=== PATIENT | male | born 1960 | race Caucasian/White ===

== ENCOUNTER → 2016-12-30 | Outpatient (CLI) | payer OTHER ==
--- NOTE | 2016-12-30 14:18 | XR ---
EXAMINATION TYPE: XR knee complete LT DATE OF EXAM: 12/30/2016 CLINICAL HISTORY: Knee sprain injury with pain. TECHNIQUE: Three views of the left knee are obtained. COMPARISON: None. FINDINGS: There is mild to moderate joint space loss and mild spurring patellofemoral compartment. T here is mild spurring lateral and medial tibiofemoral compartments. There is mild joint space loss me dial tibiofemoral compartment. There is some ossific fragmentation from tibial condyles could reflect intra-articular loose bodies measuring up to 7 mm. No acute fracture or dislocation is evident. The overlying soft tissue appears unremarkable. Fabella is incidentally noted. IMPRESSION: There is no acute fracture or dislocation in the left knee. Other findings as noted lamin ruano.
== END | disposition home or self-care (01) ==
LOC: RADXRMAIN 14:00
PROVIDERS: ATTEND Emergency Medicine
DX: S83.92XA Sprain of unspecified site of left knee, initial encounter (principal)

== ENCOUNTER → 2017-01-15 | Outpatient (CLI) | payer OTHER ==
--- NOTE | 2017-01-15 13:14 | MR ---
EXAMINATION TYPE: MR knee LT wo con DATE OF EXAM: 01/15/2017 COMPARISON: NONE HISTORY: Lt Knee Sprain TECHNIQUE: Multiplanar, multisequence imaging of the left knee is performed without IV contrast. FINDINGS: MEDIAL MENISCUS: There is increased signal within the posterior horn medial meniscus. This may commun icate with the mid anterior portion of the posterior horn. Internal derangement is favored. Degenerat ramakrishna changes less likely at this level. LATERAL MENISCUS: There is minimal linear signal within the posterior horn lateral meniscus. Communic ation with an articular surface is not identified. Internal derangement should be considered. Degener ative change could be considered. CRUCIATE LIGAMENTS: The anterior and posterior cruciate ligaments are intact and unremarkable. COLLATERAL LIGAMENTS: The medial collateral ligament and lateral collateral ligament complex are inta ct and unremarkable. EXTENSOR MECHANISM: Visualized quadriceps and patellar tendons are intact. EFFUSION: There is a moderate size joint effusion present into the suprapatellar space POPLITEAL CYST: No popliteal/alcaraz cyst. TRICOMPARTMENT SPACES: Preserved CARTILAGE: Some mild narrowing of the tibial plateau articular surface may be present. Remaining cart ilage surfaces appear intact BONE MARROW SIGNAL: No focal abnormal marrow signal is appreciated. OTHER: Some superficial soft tissue swelling is present in the infrapatellar subcutaneous tissue. IMPRESSION: 1. Suspected internal derangement posterior horn medial meniscus. Communication with the anterior sup erior portion medial meniscus surfaces is not excluded. 2. Internal derangement versus degenerative change posterior horn medial meniscus. 3. Moderate joint effusion
== END | disposition home or self-care (01) ==
LOC: RADMRIMAIN 11:27
PROVIDERS: ATTEND Emergency Medicine
DX: M25.462 Effusion, left knee (principal)

== ENCOUNTER 2017-12-20 09:27 | Day surgery (SDC) | payer OTHER ==
[2017-12-16 15:57] VITALS: BMI 38.2
[~2017-12-20 09:27] MED LIST: LACTATED RINGERS 1,000 ML IV SCH
[2017-12-20] MEDS ORDERED: LIDOCAINE 1% 20 ML VIAL (10MG/ML) FOR IV START INTRADERMA ONE (10:12)
[2017-12-20 10:15] VITALS: RESP 16; TEMP 98.7
[2017-12-20 10:15] LABS: Glucose,Whole Blood 88 mg/dL (75-99)
[2017-12-20] MEDS ORDERED: PROPOFOL 10 MG/ML 20 ML VIAL IV ONE (10:46)
--- NOTE | 2017-12-20 10:46 | P.GSHP ---
History of Present Illness H&P Date: 12/20/17 Chief Complaint: History of colon polyps This a 57-year-old male referred from Dr. Ninoska tamez. Patient is today for colonoscopy. He has a history of colon polyps. Past Medical History Past Medical History: Hyperlipidemia, Hypertension Additional Past Medical History / Comment(s): steroid injection 12-02-17, hx colon polyps History of Any Multi-Drug Resistant Organisms: None Reported Past Surgical History: Orthopedic Surgery Additional Past Surgical History / Comment(s): scope rt knee,varicose veins removed rt leg,liposuction Past Anesthesia/Blood Transfusion Reactions: No Reported Reaction Smoking Status: Former smoker - Past Family History Mother Family Medical History: No Reported History Father Family Medical History: Cancer, Diabetes Mellitus Additional Family Medical History / Comment(s): colon,emphysema Medications and Allergies Home Medications Medication Instructions Recorded Confirmed Type Celecoxib [CeleBREX] 200 mg PO DAILY 12/16/17 12/20/17 History Cholecalciferol [Vitamin D3] 5,000 unit PO DAILY 12/16/17 12/20/17 History Cyclobenzaprine [Flexeril] 10 mg PO DAILY PRN 12/16/17 12/20/17 History Gabapentin 600 mg PO BID PRN 12/16/17 12/20/17 History Multivitamins, Thera [Multivitamin 1 tab PO DAILY 12/16/17 12/20/17 History (formulary)] Ramipril 10 mg PO QAM 12/16/17 12/20/17 History Simvastatin 40 mg PO DAILY 12/16/17 12/20/17 History Testosterone Replacement 30 mg PO BID 12/16/17 12/20/17 History Allergies Allergy/AdvReac Type Severity Reaction Status Date / Time No Known Allergies Allergy Verified 12/20/17 10:06 Surgical - Exam Vital Signs Temp Pulse Resp BP Pulse Ox 98.7 F 75 16 128/78 100 12/20/17 10:14 12/20/17 10:14 12/20/17 10:14 12/20/17 10:14 12/20/17 10:14 - General well developed, no distress - Eyes PERRL - ENT normal pinna - Neck no masses - Respiratory normal expansion - Cardiovascular Rhythm: regular - Abdomen Abdomen: soft, non tender Assessment and Plan Assessment: History of colon polyps. We'll perform colonoscopy.
--- NOTE | 2017-12-20 11:02 | P.OP ---
Date of Procedure: 12/20/17 Preoperative Diagnosis: History of colon polyps Postoperative Diagnosis: Diverticulosis Procedure(s) Performed: Colonoscopy Anesthesia: MAC Surgeon: Raul Chen Pathology: none sent Condition: stable Disposition: PACU Description of Procedure: The patient's placed on the endoscopy table in the lateral position. He received IV sedation. Digital rectal exam was performed which revealed no abnormalities. The flexible colonoscope was then placed patient anus and passed throughout the entire colon. The ileocecal valve was visualized. The cecum, ascending and transverse colon appeared normal. In the descending and sigmoid colon there was a few scattered diverticula. The scope was then brought back the rectum and this appeared normal. There were no polyps seen throughout the entire colon.
[2017-12-20 11:28] VITALS: BP 124/76; PULSE 61
== END 2017-12-20 11:30 | disposition home or self-care (01) ==
LOC: ORWHC2ENDO 09:27
PROVIDERS: ATTEND Surgery
DX: Z12.11 Encounter for screening for malignant neoplasm of colon (principal); K57.30 Diverticulosis of large intestine without perforation or abscess without bleeding; Z86.010 Personal history of colon polyps; Z80.0 Family history of malignant neoplasm of digestive organs; I10 Essential (primary) hypertension; E78.5 Hyperlipidemia, unspecified; Z87.891 Personal history of nicotine dependence; Z79.890 Hormone replacement therapy; Z79.899 Other long term (current) drug therapy
CPT/HCPCS: J2704; G0105; 45378

== ENCOUNTER → 2019-01-06 | Outpatient (CLI) | payer OTHER ==
[2019-01-06 16:36] LABS: Basophils # (A) 0.1 k/uL (0-0.2); Basophils % (A) 2 %; Eosinophils # (A) 0.2 k/uL (0-0.7); Eosinophils % (A) 3 %; HCT 50.6 % (39.0-53.0); HGB 17.4 gm/dL (13.0-17.5); Lymphocytes # (A) 2.6 k/uL (1.0-4.8); Lymphocytes % (A) 30 %; MCH 32.7 pg (25.0-35.0); MCHC 34.4 g/dL (31.0-37.0); MCV 94.9 fL (80.0-100.0); Mean Platelet Volume 6.8; Monocytes # (A) 0.6 k/uL (0-1.0); Monocytes % (A) 7 %; Neutrophils # (A) 4.8 k/uL (1.3-7.7); Neutrophils % (A) 56 %; Platelet Count 190 k/uL (150-450); RBC 5.33 m/uL (4.30-5.90); RDW 12.8 % (11.5-15.5); WBC 8.5 k/uL (3.8-10.6)
[2019-01-06 16:37] LABS: Appearance,Urine Clear (Clear); Bilirubin,Urine Negative (Negative); Blood,Urine Negative (Negative); Color,Urine Yellow; Glucose,Urine (UA) Negative (Negative); Ketones,Urine Negative (Negative); Leukocyte Esterase,Urine Negative (Negative); Nitrite,Urine Negative (Negative); Protein,Urine Negative (Negative); Specific Gravity,Urine 1.022 (1.001-1.035); Urobilinogen,Urine <2.0 mg/dL (<2.0)
[2019-01-06 16:43] LABS: INR 0.9 (<1.2); Partial Thromboplastin Time 25.6 sec (22.0-30.0)
[2019-01-06 16:46] LABS: African American GFR (CKD) >90 (>60 ml/min/1.73 sqM); Anion Gap 8 mmol/L; Blood Urea Nitrogen 18 mg/dL (9-20); Calcium 9.8 mg/dL (8.4-10.2); Carbon Dioxide 28 mmol/L (22-30); Chloride 105 mmol/L (98-107); Glucose 97 mg/dL (74-99); Potassium 5.2 mmol/L (3.5-5.1); Sodium 141 mmol/L (137-145)
== END | disposition home or self-care (01) ==
LOC: LABPAT 15:55
PROVIDERS: ATTEND Orthopaedic Surgery Orthopaedic Surgery of the Spine
DX: Z01.812 Encounter for preprocedural laboratory examination (principal)
CPT/HCPCS: 36415; 80048; 81003; 85025; 85610; 85730

== ENCOUNTER → 2019-01-25 | Outpatient (CLI) | payer OTHER | END | disposition home or self-care (01) | LOC: LABPAT 16:57 | PROVIDERS: ATTEND Orthopaedic Surgery Orthopaedic Surgery of the Spine | DX: Z01.812 Encounter for preprocedural laboratory examination (principal) | CPT/HCPCS: 86850; 86900; 86901; 87070 ==

== ENCOUNTER 2019-02-01 09:55 | Inpatient (IN) | payer OTHER ==
[~2019-02-01 09:55] MED LIST changes: +BACITRACIN 50,000 UNIT, POLYMYXIN B 500,000 UNIT in SODIUM CHLORIDE 0.9% IRRIGATIO 1,00... IRRIGATION ONE; +DEXAMETHASONE SOD PHOSPHATE 10 MG/ML 1 ML VIAL IV ONE; -LACTATED RINGERS 1,000 ML IV SCH; +LIDOCAINE 1% 20 ML VIAL (10MG/ML) FOR IV START INTRADERMA PRN; +MIDAZOLAM 2 MG/2 ML VIAL IV PRN; +ceFAZolin 3 GM in SODIUM CHLORIDE 0.9% 100 ML IVPB ONE
[2019-02-01] MEDS: LACTATED RINGERS 1,000 ML IV SCH ×2 (12:35→18:56)
[2019-02-01] MEDS ORDERED: ONDANSETRON 4 MG/2 ML VIAL IVP ONE (12:51)
[2019-02-01] MEDS ORDERED: GELATIN SPONGE,ABSORB (LARGE) 1 EACH SPONGE TOPICAL ONE (14:50)
[2019-02-01] MEDS ORDERED: BUPIVACAINE (PF) 0.5% 30 ML VIAL SQ ONE (14:50)
[2019-02-01] MEDS ORDERED: THROMBIN (BOVINE) 5,000 UNIT VIAL TOPICAL ONE (14:50)
[2019-02-01] MEDS ORDERED: LACTATED RINGERS 1,000 ML IV ONE (17:24)
[2019-02-01] MEDS ORDERED: BENZOCAINE/MENTHOL LOZENG 1 EACH LOZENGE MUCOUS MEM PRN (17:27)
[2019-02-01] MEDS ORDERED: ONDANSETRON 4 MG/2 ML VIAL IVP PRN (17:27)
[2019-02-01] MEDS ORDERED: HYDROmorphone 2 MG/ML 1 ML SYRINGE IVP PRN (17:27)
[2019-02-01] MEDS ORDERED: HYDROmorphone 1 MG/ML 1 ML SYRINGE IVP PRN (17:27)
[2019-02-01] MEDS ORDERED: HYDROcodone/APAP 5-325MG 1 EACH TAB PO PRN (17:27)
--- NOTE | 2019-02-01 17:41 | P.OP ---
Date of Procedure: 02/01/19 Preoperative Diagnosis: Severe spinal stenosis L4 5, spondylolisthesis L4 5, neurogenic claudication, lower extremity radiculopathy, low back pain Postoperative Diagnosis: Same Anesthesia: GETA Pathology: none sent Condition: stable Disposition: PACU Description of Procedure: DESCRIPTION OF PROCEDURE(S): BRIEF OPERATIVE NOTE Preoperative Diagnosis: Severe spinal stenosis L4 5, spondylolisthesis L4 5, neurogenic claudication, lower extremity radiculopathy, low back pain, obesity Postoperative Diagnosis:Severe spinal stenosis L4 5, spondylolisthesis L4 5, neurogenic claudication, lower extremity radiculopathy, low back pain, obesity Procedure: Laminectomy and decompression L4 5 Minimally invasive Posterior lateral decompression and facet fusion L4 5 Minimally invasive Transforaminal lumbar interbody fusion for a 360 fusion L4 5 Discectomy for decompression L4 5 Placement of interbody graft L4 5 Local autogenous bone grafting Harvesting of bone marrow aspirate via the pedicle and vertebral body of L4 Use of Cell Saver Use of bone graft extenders Surgeon: Dr. Patel Drum Tester: Randall Chaparro is present throughout the entire the case persistence during positioning, dissection, exposure, visualization, and all crucial elements of the case as well as closure. Anesthesia: General anesthesia per Dr. Barnett Estimated blood loss: Approximately 150 mL Complications: None apparent Components implanted: K2M minimally evasive [place] pedicle screw system with 4 screws measuring 6.5 x 50 with 2 rods one Crowley interbody cage measuring 10 mm and 10 mL of periosteal stem cell matrix and 30 mL of DBX bone fibers Disposition: To recovery room in good stable condition. OPERATIVE INDICATIONS The patient has had long-standing issues in their lower back and lower extremities. He has been having worsening of his symptoms at his back and his lower extremities despite aggressive conservative care. He was found have severe central and bilateral foraminal stenosis at L4 5 which cause a well with his low back pain and lower extremity symptoms along with spondylolisthesis at L4 5. The patient has been through conservative treatment. We discussed various treatment options including surgery, and the patient wishes to proceed with surgery We discussed the risk, patient's alternatives and benefits of surgery including but not limited to, risk of bleeding risk of infection, risk of need for further surgery, risk of decreased, loss of motion, muscle function, malunion nonunion, hardware failure, nerve damage, paralysis, heart attack, blindness and . OPERATIVE SUMMARY After discussing all the risks, patient alternatives and benefits at length, the patient elected to proceed with surgical intervention, signed informed consent, and presented for their procedure. The patient was seen and examined in the preoperative holding area and the surgical site was marked. The patient was given antibiotics and brought to the operating room. The patient was sedated and intubated by anesthesia in standard fashion. The patient was positioned on to the operating room table in a prone position on the appropriate frame which was well-padded and well molded. We were careful to pad any bony prominences and pressure points. We were careful to maintain the patient's cervical spine and good neutral alignment and position throughout. The patient was prepped and draped in a normal standard fashion. An appropriate timeout and keystone protocol performed. We were able to proceed with the surgery. The local wound area was infiltrated with local anesthetic. I was able utilize C-arm guidance to establish appropriate position over the pedicles bilaterally at the appropriate levels at L4 5. With the appropriate levels confirmed was able to make small stab incisions over the appropriate pedicle sites bilaterally. Utilizing C-arm in his house able to establish a Jamshidi needle over the lateral aspect of the pedicle and advanced the trocar into the pedicle being careful not to breech superiorly inferiorly medially or laterally. Position was confirmed regularly with AP and lateral images on C- arm. I was able to establish the trocar into the pedicle appropriately into the posterior aspect of the vertebral body bilaterally at the appropriate levels at L4 and L5. This was done at each of the pedicle positions and each of the vertebrae. At L4 on the right I withdrew approximately 20 mL of bone marrow aspirate to use for the bone graft supplement. I was able place the guidewire into the trocar and into the vertebral body appropriately under C-arm guidance. Dissection was taken down over the wire to the appropriate starting position for the screw placed. The appropriate length screw was chosen, threaded over the guidewire and screwed appropriately into the pedicle and vertebral body under C- arm guidance in excellent alignment and position with good bony purchase. This is done at each of the screw sites at the appropriate levels at L4 and L5. With the screws intact I extended the incision to connect the screw hole sites on the most symptomatic side on the left at L4 5. I dissected down to establish access over the pars and lamina to the base of the spinous process. I was able to expose the facet joint. The capsule the facet was taken down and showed some facet arthrosis at the joint. I was able to use a combination of curettes and Kerrison rongeurs and a high-speed drill to take down the facet joint and do a facetectomy. Partial laminectomy was also performed. The patient had severe central and bilateral foraminal stenosis. I was able get excellent foraminal decompression and central decompression with undermining across midline to perform a laminectomy centrally and contralaterally. As able get good central decompression. The ligamentum flavum was taken down to further decompress centrally and at bilateral neural foramen. I was able to expose the disc space and visualize the traversing nerve root. Note was made of some disc protrusion at the level causing further compression of the nerve root. I was able to establish a annulotomy at the appropriate level protecting soft tissue and neural structures. Note was made of some disc desiccation at the disc. I performed a complete discectomy with accommodation of curettes and rasps and scrapers. I was able get good endplate preparation at the disc space. I sized for the appropriate size interbody spacer protecting the soft tissue and neural structures. The wound was copiously irrigated and suctioned dry. There is no evidence of any dural tear or leak. I was able to pack the disc space with local autogenous bone graft as well as a small amount of bone graft which was also placed into the interbody cage itself. Protecting the soft tissue structures and neural structures I was able place the interbody cage into the interbody space at L4 5 in good alignment and good position with good fit and fill at the interbody space. His issues was conf irmed with C-arm guidance. Good hemostasis maintained. There is no evidence of any dural tear or leak. The wound was irrigated and suctioned dry. With the hardware intact, intraoperative C-arm imaging was again taken which showed good alignment and position of the hardware at the appropriate levels at L4 5. We were then able to measure, contour and place the rods and appropriate hardware bilaterally. I was able to place capcrews, tighten them down, and torque them with the torque screwdriver appropriately. With this intact I was able to place the local autogenous bone graft with additional bone graft enhancer as necessary into the posterior lateral gutters over the decorticated transverse processes. The remainder of the bone graft was placed over the facet joint on the contralateral side after taking down the facet joint capsule. With the bone graft intact, a stable construct, and good decompression at the appropriate levels, we were able to proceed with closure. Good hemostasis was maintained. There is no evidence of dural tear or leak. The fascia was closed for a watertight closure. he subcuticular tissue was closed with absorbable suture. The wound was cleaned and dried and dressed with the appropriate dressing. The drapes were broken down. The patient was gently rolled back onto their hospital bed being careful to maintain their cervical spine and good neut ral alignment and position. They were woken up by anesthesia, extubated, and brought to the recovery room in good stable condition. The patient will be admitted to the hospital for appropriate postoperative care, medical management and monitoring. We will continue to follow them closely about the postoperative course.
[2019-02-01] MEDS: fentaNYL (PF) 50 MCG/ML 2 ML AMP IV PRN ×4 (17:45→18:38)
[2019-02-01] MEDS: CALCIUM CARBONATE 500 MG CHEWABLE PO SCH (21:34)
[2019-02-01] MEDS: SODIUM CHLORIDE 0.9% 1,000 ML IV SCH (21:38)
[2019-02-01] MEDS: HYDROmorphone 0.5 MG/0.5 ML SYRINGE IVP PRN (22:08)
[2019-02-01] MEDS: ceFAZolin 3 GM in SODIUM CHLORIDE 0.9% 100 ML IVPB SCH (23:21)
[2019-02-02] MEDS: HYDROmorphone 0.5 MG/0.5 ML SYRINGE IVP PRN ×2 (02:30→23:18)
[2019-02-02] MEDS: HYDROcodone/APAP 5-325MG 1 EACH TAB PO PRN ×3 (04:33→20:50)
[2019-02-02] MEDS: SODIUM CHLORIDE 0.9% 1,000 ML IV SCH ×2 (05:56→15:37)
--- NOTE | 2019-02-02 07:11 | FL ---
EXAMINATION TYPE: FL guidance operating room DATE OF EXAM: 02/01/2019 CLINICAL HISTORY: Low back pain. TECHNIQUE: Fluoroscopy. COMPARISON: None. FINDINGS: Fluoroscopic guidance was provided during pain relief procedure performed by Dr. Patel . A total of 1.22 minutes of fluoroscopic time was utilized during the procedure and 6 spot images are acquired during minimally invasive lumbar fusion. IMPRESSION: As Above.
[2019-02-02 07:31] LABS: Basophils % (A) 0 %; Eosinophils % (A) 0 %; HCT 43.2 % (39.0-53.0); HGB 14.9 gm/dL (13.0-17.5); Lymphocytes # (A) 1.4 k/uL (1.0-4.8); Lymphocytes % (A) 11 %; MCHC 34.5 g/dL (31.0-37.0); Mean Platelet Volume 5.8; Monocytes # (A) 0.9 k/uL (0-1.0); Monocytes % (A) 7 %; Neutrophils # (A) 9.9 k/uL (1.3-7.7); Neutrophils % (A) 81 %; Platelet Count 194 k/uL (150-450); RBC 4.64 m/uL (4.30-5.90); RDW 12.3 % (11.5-15.5); WBC 12.3 k/uL (3.8-10.6)
[2019-02-02] MEDS: HYDROmorphone 1 MG/ML 1 ML SYRINGE IVP PRN ×2 (07:37→11:50)
[2019-02-02] MEDS: CALCIUM CARBONATE 500 MG CHEWABLE PO SCH ×2 (07:39→20:51)
[2019-02-02] MEDS: CHOLECALCIFEROL 1,000 UNIT TAB PO SCH (07:39)
[2019-02-02] MEDS: ceFAZolin 3 GM in SODIUM CHLORIDE 0.9% 100 ML IVPB SCH (07:39)
[2019-02-02] MEDS: SENNOSIDES-DOCUSATE SODIUM 1 EACH TAB PO SCH (07:39)
[2019-02-02] MEDS: MULTIVITAMINS, THERA 1 EACH TAB PO SCH (07:40)
[2019-02-02] MEDS: ATORVASTATIN 20 MG TAB PO SCH (07:40)
[2019-02-02] MEDS: LISINOPRIL 20 MG TAB PO SCH (07:40)
[2019-02-02 07:51] LABS: African American GFR (CKD) >90 (>60 ml/min/1.73 sqM); Anion Gap 8 mmol/L; Blood Urea Nitrogen 18 mg/dL (9-20); Calcium 8.6 mg/dL (8.4-10.2); Carbon Dioxide 28 mmol/L (22-30); Chloride 101 mmol/L (98-107); Glucose 109 mg/dL (74-99); Potassium 4.5 mmol/L (3.5-5.1); Sodium 137 mmol/L (137-145)
--- NOTE | 2019-02-02 11:30 | P.PN ---
Progress Note - Text Progress Note Date: 02/02/19 Postoperative day #1 Patient is seen and examined today at bedside. The patient has some pain around the surgical site as expected. Pain is being controlled with medication. He has occasional tingling down his legs but he denies any loss of strength. Physical Exam Afebrile with stable vital signs Abdomen is soft nontender. Chest has good excursion deep and space expiration The incision site is clean dry and intact. No erythema there is no purulence. The back dressing is intact with some small bleeding on the dressing. Extremities have not had neurologic change from prior to surgery. He has sustained dorsal flexion plantarflexion and EHL flexion-extension intact. Calves and thighs were soft nontender without evidence of DVT. Assessment/Plan Postoperative day 1 status post minimally invasive decompression and fusion L4 5 for his severe spinal stenosis with spondylolisthesis and lower extremity radiculopathy Patient is progressing as expected from the surgery. He has severe pain around his surgical site but has been able to mobilize with therapy today We will continue to increase the patient's mobilization with therapy. We will continue pain control with oral or IV medications. We'll continue to follow patient closely.
[2019-02-02] MEDS: LACTATED RINGERS 1,000 ML IV SCH (15:26)
[2019-02-02] MEDS: CYCLOBENZAPRINE 10 MG TAB PO PRN (20:52)
[2019-02-03] MEDS: HYDROcodone/APAP 5-325MG 1 EACH TAB PO PRN ×5 (03:25→22:44)
[2019-02-03] MEDS: HYDROmorphone 1 MG/ML 1 ML SYRINGE IVP PRN (05:48)
[2019-02-03] MEDS: ATORVASTATIN 20 MG TAB PO SCH (07:38)
[2019-02-03] MEDS: LISINOPRIL 20 MG TAB PO SCH (07:38)
[2019-02-03] MEDS: CALCIUM CARBONATE 500 MG CHEWABLE PO SCH ×2 (07:38→21:41)
[2019-02-03] MEDS: SENNOSIDES-DOCUSATE SODIUM 1 EACH TAB PO SCH (07:38)
[2019-02-03] MEDS: MULTIVITAMINS, THERA 1 EACH TAB PO SCH (07:38)
[2019-02-03] MEDS: CHOLECALCIFEROL 1,000 UNIT TAB PO SCH (07:41)
--- NOTE | 2019-02-03 08:53 | P.PN ---
Progress Note - Text Progress Note Date: 02/03/19 Orthopedic Spine Patient is a pleasant 58-year-old male who is seen and examined at the bedside following posterior lateral decompression and fusion performed Wednesday. He does continue to have significant pain at the surgical sites and bilateral lower extremity radiculopathy but feels he has had some improvement since yesterday. His pain radiates from the lumbar spine, into the buttocks, down the posterior thigh into the calves. He is currently sitting in a bedside chair. He has been able to roll over easier bed. He has been able to extend extended the time in between IV Dilaudid doses. He continues to take oral pain medications. He is eating without difficulty. He has some difficulty with voiding while standing but is able to void easier while lying in bed. Patient states they are doing well postsurgically. Currently does not complain of nausea, vomiting, fever, or chills. He is working with therapy to aid in ambulation and is currently using a walker. Patient has had a medical history which includes hypertension and hyperlipidemia. Physical Exam Lumbar Fusion: Status post surgical day number 2 Patient is awake, alert, and oriented 3 Vital signs stable Good chest excursion with deep inspiration and expiration Dorsiflexion, plantarflexion, and extensor hallucis longus positive sustained bilaterally No signs or symptoms of DVT; no calf pain; pneumatic cuffs intact bilateral lower extremities Dressing is clean and intact with a small area of dry blood over the right incision; no erythema, purulence, or signs of infection No significant pain on palpation over the surgical sites Neurovascularly intact bilaterally lower extremities Assessment: Status post L4-5 minimally invasive posterior lateral decompression and fusion with transforaminal lumbar interbody fusion Low back pain Bilateral lower extremity radiculopathy L4-5 spondylolisthesis Neurogenic claudication History of hypertension and hyperlipidemia Plan: 1. Ambulate as tolerated; work with Physical Therapy to increase mobilization 2. Continue pain control with IV and oral medications; we will continue to wean off IV narcotic medications in anticipation for discharge home over the weekend MAPS has been reviewed today, 02/03/2019, with an Overall Overdose Risk Score of 000. An "Opiod Start Talking" Forn has been signed by the patient and myself in place in the patient's chart. A prescription has been written for [place] 5 mg/325 mg 1-2 tabs every 4 hours as needed for pain, dispensed #[id number]. Prescription has been sent electronically to his pharmacy. Patient may resume other previous prescribed home medications at the time of discharge while avoiding anti-inflammatories over the next 6 weeks postoperatively. 3. Dressing to remain intact with nonstick silver dressing and Tegaderm 4. Medical management can continue to manage patient for patient's other medical issues 5. We will continue to follow the patient closely; if the patient is able to improve, we'll plan for discharge home over the next 1-2 days 6. Patient can follow-up with Randall Cardozo PA-C or Dr. Jose Luis Patel at [facility] in 2-3 weeks following discharge
[2019-02-03] MEDS: SODIUM CHLORIDE 0.9% 1,000 ML IV SCH (12:27)
[2019-02-03] MEDS: CYCLOBENZAPRINE 10 MG TAB PO PRN (21:41)
[2019-02-04] MEDS: GABAPENTIN 300 MG CAP PO PRN ×3 (02:12→16:58)
[2019-02-04] MEDS: HYDROcodone/APAP 5-325MG 1 EACH TAB PO PRN ×5 (05:15→20:56)
[2019-02-04] MEDS: MULTIVITAMINS, THERA 1 EACH TAB PO SCH (08:46)
[2019-02-04] MEDS: CALCIUM CARBONATE 500 MG CHEWABLE PO SCH ×2 (08:46→20:56)
[2019-02-04] MEDS: ATORVASTATIN 20 MG TAB PO SCH (08:46)
[2019-02-04] MEDS: LISINOPRIL 20 MG TAB PO SCH (08:46)
[2019-02-04] MEDS: SENNOSIDES-DOCUSATE SODIUM 1 EACH TAB PO SCH (08:46)
[2019-02-04] MEDS: CHOLECALCIFEROL 1,000 UNIT TAB PO SCH (08:46)
[2019-02-04] MEDS ORDERED: NA PHOS,M-B/NA PHOS,DI-BA 133 ML ENEMA RECTAL PRN (10:23)
--- NOTE | 2019-02-04 10:28 | P.DS ---
Providers Date of admission: 02/01/19 12:12 Attending physician: Leanna Patel Primary care physician: [facility] Course: The patient presented on the day of admission as per their operative note. He had severe stenosis with spondylolisthesis L4 5 with low back pain lower extremity radiculopathy. He had failed conservative treatment after extensive conservative intervention and underwent decompression and fusion at L4 5 with minimally invasive pedicle screws as per his operative note. Postoperatively he has been making progress with his pain control and his mobilization. He is tolerating his diet. He has been ambulatory on his own with a walker in his room. He has been able to void freely but has not yet had a bowel movement. He is not having any nausea or vomiting. He denies any fevers. Physical Exam The incision site is clean dry and intact. There is no erythema no drainage. There is no purulence no evidence of infection. There is no cigarette swelling Abdomen soft and nontender. There is no rebound or rigidity. No significant distention he is obese Chest has good excursion with deep inspiration and expiration. The patient has active and passive range of motion intact at the upper and lower extremities. There is no acute change in neurologic status. He has sustained dorsal should plantarflexion and EHL intact with 5 out of 5 strength. Hospital Course Postoperative day #3 status post middle invasive decompression and fusion L4 5 for a spondylolisthesis with severe central and bilateral foraminal stenosis and lower extremity radiculopathy The patient has been making good progress postoperatively in terms of his mobility and pain control. They have completed the prophylactic antibiotics without any signs or symptoms of infection. The patient has been able to advance their diet, and is tolerating diet adequately. The pain was initially controlled with IV medications and is now controlled appropriately with oral medications. The patient has been able to increase their mobilization. The patient has not yet had a bowel movement but he is voiding freely on his own. I like to see if he is able to have a bowel movement with a suppository this morning. He feels that if his bowel start to move that he would be comfortable with going home and I think is appropriate. The patient has progressed appropriately. I think they are in good stable condition for discharge today if he is able have a bowel movement and he feels comfortable with his pain.. They will be sent home with appropriate prescriptions. I answered their questions to the best of my ability in a language that they can understand and they are agreeable with the plan. They will follow up as directed in approximately 2 weeks or sooner if he is having a problem. Patient Condition at Discharge: Good Plan - Discharge Summary Discharge Rx Participant: Yes New Discharge Prescriptions: New Hydrocodone/Acetaminophen [[place] 5-325] 1 - 2 each PO Q4HR PRN #84 tab PRN Reason: Pain No Action Ramipril 10 mg PO QAM Multivitamins, Thera [Multivitamin (formulary)] 1 tab PO DAILY Cholecalciferol [Vitamin D3] 5,000 unit PO DAILY Simvastatin 40 mg PO DAILY Gabapentin 600 mg PO TID PRN PRN Reason: Pain Cyclobenzaprine [Flexeril] 10 mg PO 2000 PRN PRN Reason: Pain Celecoxib [CeleBREX] 200 mg PO DAILY Fortesta 30 mg TOPICAL BID Calcium Carbonate [Calcium] 300 mg PO BID Discharge Medication List Celecoxib [CeleBREX] 200 mg PO DAILY 12/16/17 [History] Cholecalciferol [Vitamin D3] 5,000 unit PO DAILY 12/16/17 [History] Cyclobenzaprine [Flexeril] 10 mg PO 2000 PRN 12/16/17 [History] Gabapentin 600 mg PO TID PRN 12/16/17 [History] Multivitamins, Thera [Multivitamin (formulary)] 1 tab PO DAILY 12/16/17 [History] Ramipril 10 mg PO QAM 12/16/17 [History] Simvastatin 40 mg PO DAILY 12/16/17 [History] Calcium Carbonate [Calcium] 300 mg PO BID 01/26/19 [History] Fortesta 30 mg TOPICAL BID 01/26/19 [History] Hydrocodone/Acetaminophen [[place] 5-325] 1 - 2 each PO Q4HR PRN #84 tab 02/03/19 [Rx] Follow up Appointment(s)/Referral(s): Randall Cardozo PAC [PHYSICIAN TOOLROOM ATTENDANT] - 2 Weeks (Patient may follow-up with Ranadll Cardozo PA-C or Dr. Jose Luis Patel at [facility] in 2-3 weeks following discharge. ) Activity/Diet/Wound Care/Special Instructions: 1. Patient may shower with Tegaderm dressing intact. 2. Patient may remove Tegaderm dressing on Wednesday and shower without a dressing at that time. 3. Patient should keep Steri-Strips intact and allow them to fall off naturally. 4. Patient should refrain from driving until at least after their first follow- up appointment in the office. 5. Patient should avoid excessive bending, twisting, and lifting; no lifting greater than 10 pounds 6. Take medications as prescribed 7. Do not soak in tub Discharge Disposition: HOME SELF-CARE
[2019-02-04] MEDS: BISACODYL 10 MG SUPP RECTAL SCH (12:44)
[2019-02-04] MEDS: MAGNESIUM HYDROXIDE 2,400 MG/10 ML CUP PO PRN (16:58)
[2019-02-05] MEDS: HYDROcodone/APAP 5-325MG 1 EACH TAB PO PRN ×4 (01:23→15:14)
[2019-02-05] MEDS: CALCIUM CARBONATE 500 MG CHEWABLE PO SCH ×2 (08:50→19:25)
[2019-02-05] MEDS: SENNOSIDES-DOCUSATE SODIUM 1 EACH TAB PO SCH (08:51)
[2019-02-05] MEDS: MULTIVITAMINS, THERA 1 EACH TAB PO SCH (08:51)
[2019-02-05] MEDS: CHOLECALCIFEROL 1,000 UNIT TAB PO SCH (08:51)
[2019-02-05] MEDS: ATORVASTATIN 20 MG TAB PO SCH (08:51)
[2019-02-05] MEDS: LISINOPRIL 20 MG TAB PO SCH (08:51)
[2019-02-05] MEDS: BISACODYL 10 MG SUPP RECTAL SCH (08:51)
[2019-02-05] MEDS: GABAPENTIN 300 MG CAP PO PRN (11:03)
[2019-02-05 11:26] LABS: Appearance,Urine Clear (Clear); Bilirubin,Urine Negative (Negative); Blood,Urine Trace (Negative); Color,Urine Yellow; Glucose,Urine (UA) Negative (Negative); Ketones,Urine Negative (Negative); Leukocyte Esterase,Urine Negative (Negative); Mucus,Urine Rare /hpf; Nitrite,Urine Negative (Negative); PH, Urine 7.5 (5.0-8.0); Protein,Urine Trace (Negative); RBC,Urine 9 /hpf (0-5); Specific Gravity,Urine 1.019 (1.001-1.035); Urobilinogen,Urine <2.0 mg/dL (<2.0)
--- NOTE | 2019-02-05 13:36 | P.DS ---
Providers Date of admission: 02/01/19 12:12 Attending physician: Leanna Patel Primary care physician: [facility] Course: Postoperative day #4 Patient is seen and examined today at bedside. The patient has some pain around the surgical site as expected. Pain is being controlled with medication. He has been able to get up out of bed on his own with a walker to the bathroom. He is able walk in the bathroom without the walker. He was having significant difficulty with voiding and this morning had bladder scan which showed residual of 800 mL of urine. He had straight catheterization which put out about 850 mL. He is oriented small voiding since then. He had very small watery stool after his enema yesterday and has not had a good bowel movement yet. Physical Exam Afebrile with stable vital signs Abdomen is soft nontender. He has no rebound or rigidity. Chest has good excursion deep and space expiration The incision site is clean dry and intact. No erythema there is no purulence. Extremities have not had neurologic change from prior to surgery. He has sustained dorsal to plantar flexion and EHL. There is no saddle paresthesias. He has sustained dorsal to plantar flexion and EHL intact. Calves and thighs were soft nontender without evidence of DVT. Assessment/Plan Postoperative day #4 status post minimally invasive decompression fusion L4 5 for severe spinal stenosis with spondylolisthesis Postoperative urinary retention Patient is progressing somewhat slowly from the surgery. He has not yet had a bowel movement and he is having some difficulty voiding. I think it would be helpful start him on Flomax. If he is not having good urination later today on his own and then we'll check another bladder scan. If he is having significant residual vent he may have some benefit with lateral rest with placement of a Parikh catheter overnight. I discussed this with him and he understands. If he is having some benefit after his straight catheterization and is voiding freely and was able to have a good bowel movement then he would like to go home and I think that is reasonable as well. We will continue to increase the patient's mobilization with therapy. We will continue pain control with orals. If he makes progress with his urination and bowel movements and to be okay for him to discharge home today with appropriate follow-up. Patient Condition at Discharge: Good Plan - Discharge Summary Discharge Rx Participant: Yes New Discharge Prescriptions: New Hydrocodone/Acetaminophen [[place] 5-325] 1 - 2 each PO Q4HR PRN #84 tab PRN Reason: Pain No Action Ramipril 10 mg PO QAM Multivitamins, Thera [Multivitamin (formulary)] 1 tab PO DAILY Cholecalciferol [Vitamin D3] 5,000 unit PO DAILY Simvastatin 40 mg PO DAILY Gabapentin 600 mg PO TID PRN PRN Reason: Pain Cyclobenzaprine [Flexeril] 10 mg PO 2000 PRN PRN Reason: Pain Celecoxib [CeleBREX] 200 mg PO DAILY Fortesta 30 mg TOPICAL BID Calcium Carbonate [Calcium] 300 mg PO BID Discharge Medication List Celecoxib [CeleBREX] 200 mg PO DAILY 12/16/17 [History] Cholecalciferol [Vitamin D3] 5,000 unit PO DAILY 12/16/17 [History] Cyclobenzaprine [Flexeril] 10 mg PO 2000 PRN 12/16/17 [History] Gabapentin 600 mg PO TID PRN 12/16/17 [History] Multivitamins, Thera [Multivitamin (formulary)] 1 tab PO DAILY 12/16/17 [History] Ramipril 10 mg PO QAM 12/16/17 [History] Simvastatin 40 mg PO DAILY 12/16/17 [History] Calcium Carbonate [Calcium] 300 mg PO BID 01/26/19 [History] Fortesta 30 mg TOPICAL BID 01/26/19 [History] Hydrocodone/Acetaminophen [[place] 5-325] 1 - 2 each PO Q4HR PRN #84 tab 02/03/19 [Rx] Follow up Appointment(s)/Referral(s): Randall Cardozo, PAC [PHYSICIAN STUDIO COORDINATOR] - 2 Weeks (Patient may follow-up with Randall Cardozo PA-C or Dr. Jose Luis Patel at [facility] in 2-3 weeks following discharge. ) Activity/Diet/Wound Care/Special Instructions: 1. Patient may shower with Tegaderm dressing intact. 2. Patient may remove Tegaderm dressing on Wednesday and shower without a dressing at that time. 3. Patient should keep Steri-Strips intact and allow them to fall off naturally. 4. Patient should refrain from driving until at least after their first follow- up appointment in the office. 5. Patient should avoid excessive bending, twisting, and lifting; no lifting greater than 10 pounds 6. Take medications as prescribed 7. Do not soak in tub Discharge Disposition: HOME SELF-CARE
[2019-02-05] MEDS: TAMSULOSIN 0.4 MG CAP.ER.24H PO SCH (15:14)
[2019-02-05] MEDS: HYDROcodone/APAP 10-325MG 1 EACH TAB PO PRN ×2 (19:24→23:32)
--- NOTE | 2019-02-05 19:54 | US ---
EXAMINATION TYPE: US venous doppler duplex LE RT DATE OF EXAM: 02/05/2019 7:41 PM COMPARISON: NONE CLINICAL HISTORY: red, swollen, tender area above right medial knee. Pt having redness and pain right medial knee, recent back surgery SIDE PERFORMED: Right TECHNIQUE: The lower extremity deep venous system is examined utilizing real time linear array sonog giselle with graded compression, doppler sonography and color-flow sonography. VESSELS IMAGED: External Iliac Vein (EIV) Common Femoral Vein Deep Femoral Vein Greater Saphenous Vein * Femoral Vein Popliteal Vein Small Saphenous Vein * Proximal Calf Veins (* superficial vessels) Right Leg: Negative for DVT, however Rouleaux flow visualized throughout veins/ +SVT within right GS V medial knee at redness, also +SVT within small saph vein IMPRESSION: There is some superficial vein thrombosis involving the long and short saphenous veins. N o evidence of deep venous thrombosis. Normal augmentation.
[2019-02-06] MEDS: HYDROcodone/APAP 10-325MG 1 EACH TAB PO PRN ×6 (02:48→23:49)
[2019-02-06] MEDS: CYCLOBENZAPRINE 10 MG TAB PO PRN ×2 (02:49→19:30)
[2019-02-06] MEDS: TAMSULOSIN 0.4 MG CAP.ER.24H PO SCH (07:16)
[2019-02-06] MEDS: LISINOPRIL 20 MG TAB PO SCH (07:16)
[2019-02-06] MEDS: CALCIUM CARBONATE 500 MG CHEWABLE PO SCH ×2 (07:16→19:30)
[2019-02-06] MEDS: ATORVASTATIN 20 MG TAB PO SCH (07:16)
[2019-02-06] MEDS: BISACODYL 10 MG SUPP RECTAL SCH (07:17)
[2019-02-06] MEDS: MULTIVITAMINS, THERA 1 EACH TAB PO SCH (07:17)
[2019-02-06] MEDS: CHOLECALCIFEROL 1,000 UNIT TAB PO SCH (07:17)
[2019-02-06] MEDS: SENNOSIDES-DOCUSATE SODIUM 1 EACH TAB PO SCH (07:17)
--- NOTE | 2019-02-06 09:02 | P.PN ---
Progress Note - Text Progress Note Date: 02/06/19 Orthopedic Spine: Patient is a pleasant 58-year-old male who is seen and examined at the bedside following posterior lateral decompression and fusion performed last Wednesday. He has had significant improvement overall in regards to his low back pain and lower extremity radiculopathy. He does have some pain radiates from the lumbar spine, into the buttocks, down the posterior thigh into the calves. He feels he was ready for discharge home from a lumbar spine standpoint but has had increased difficulty with urinary retention, constipation, and right medial distal thigh pain. He is been started on Flomax and a Parikh catheter has been reinserted. He had a suppository yesterday and felt he had a bowel movement this morning but was unable to do so. He is currently planned to receive another suppository this morning. He is also been experiencing increased pain, swelling, and erythema over the right distal medial thigh. He denies any injuries. He does have a history of previous surgical intervention at this same location for varicose veins years ago. An ultrasound Doppler of the right lower extremity but did not show evidence of DVT but did show evidence of superficial vein thrombosis involving the long and short saphenous veins. He feels his right medial distal thigh pain has been worsening over the past day or so. He has been able to ambulate to the restroom. His pain continues to be control with oral medications. He is eating without difficulty. Currently does not complain of nausea, vomiting, fever, or chills. Patient has had a medical history which includes hypertension and hyperlipidemia. Physical Exam Lumbar Fusion: Status post surgical day number 5 Patient is awake, alert, and oriented 3 Vital signs stable Abdomen is firm and distended with some mild pain with palpation Good chest excursion with deep inspiration and expiration Dorsiflexion, plantarflexion, and extensor hallucis longus positive sustained bilaterally No signs or symptoms of DVT; no calf pain; pneumatic cuffs not currently intact bilateral lower extremities Dressing is clean and intact with a small area of dry blood over the right incision; no erythema, purulence, or signs of infection No significant pain on palpation over the surgical sites Neurovascularly intact bilaterally lower extremities Parikh catheter intact Evidence of some swelling, erythema, and mild purple discoloration of the right medial distal thigh He will palpation over the right medial distal thigh Evidence of multiple healed incisions along the right medial distal thigh following previous surgical intervention Pertinent studies: Ultrasound venous Doppler duplex right lower extremity: Negative for DVT however evidence of superficial vein thrombosis involving the long and short saphenous veins Assessment: Status post L4-5 minimally invasive posterior lateral decompression and fusion with transforaminal lumbar interbody fusion Low back pain Bilateral lower extremity radiculopathy L4-5 spondylolisthesis Neurogenic claudication History of hypertension and hyperlipidemia Right medial distal thigh pain and swelling Superficial vein thrombosis involving the right long and short saphenous veins History of previous varicose vein surgery right lower extremity Urinary retention Constipation Plan: 1. Ambulate as tolerated; work with Physical Therapy to increase mobilization 2. Continue pain control with oral medications MAPS has been reviewed on 02/03/2019 with an Overall Overdose Risk Score of 000. An "Opiod Start Talking" Forn has been signed by the patient and myself in place in the patient's chart. A prescription has been written for Jeff 5 mg/325 mg 1-2 tabs every 4 hours as needed for pain, dispensed #84. Prescription has been sent electronically to his pharmacy. Patient may resume other previous prescribed home medications at the time of discharge while avoiding anti-inflammatories over the next 6 weeks postoperatively. 3. Dressing to remain intact with nonstick silver dressing and Tegaderm 4. Medical management can continue to manage patient for patient's other medical issues including urinary retention and constipation 5. We will continue to follow the patient closely; if the patient is able to improve in regards to urinary retention, constipation, and his right distal medial thigh pain and swelling, we'll plan for discharge home over the next 1-2 days 6. Patient is currently expanding some urinary retention. He is been started on Flomax and a Parikh catheter has been reinserted. We may plan to discontinue the Parikh catheter to see the patient is able to void on his own. 7. Patient is also having difficulty with constipation. He was given a suppository yesterday. He felt he had a bowel movement this morning but was unable to do so. He will receive a second suppository this morning. We will also plan to continue with Senokot and milk of magnesia to help facilitate a bowel movement. 8. He has been experiencing increased right medial distal thigh pain and swelling. The area shows some evidence of erythema and some purple discoloration. He does have a history of previous varicose vein surgery at this same location. Ultrasound Doppler was negative for DVT but did show evidence of superficial vein thrombosis involving the right long and short saphenous veins. He is having worsening pain and swelling at the site. We'll currently planned for consultation with vascular surgery. 9. Patient can follow-up with Randall Cardozo PA-C or Dr. Jose Luis Patel at [facility] in 2-3 weeks following discharge
[2019-02-06] MEDS ORDERED: NA PHOS,M-B/NA PHOS,DI-BA 133 ML ENEMA RECTAL ONE (12:37)
--- NOTE | 2019-02-06 14:45 | CDI ---
Documentation Clarification Form Date: 02/06/2019 2:36:04 PM From: Fariha AngeloMAURY ortiz, CCDS Admit Date: 02/01/2019 12:12:00 PM Patient Name: Rohan Massey Visit Number: [id number] Discharge Date: ATTENTION: The Clinical Documentation Specialists (CDI) and [facility] Coding Staff appreciate your assistance in clarifying documentation. Please respond to the clarification below the line at the bottom and electronically sign. The CDI & [facility] Coding staff will review the response and follow-up if needed. Please note: Queries are made part of the Legal Health Record. If you have any questions, please contact the author of this message via ITS. Dr. Leanna Patel: Per the 02/06 attending progress note on POD #5: "He feels he was ready for discharge home from a lumbar spine standpoint but has had increased difficulty with urinary retention, constipation, and right medial distal thigh pain. He has been started on Flomax and a Queen catheter has been reinserted." Discharge was originally scheduled for 02/04. Patients Admitting & Postoperative Diagnosis: Status post L4-5 minimally invasive posterior lateral decompression and fusion with transforaminal lumbar interbody fusion. Low back pain. Bilateral lower extremity radiculopathy. L4-5 spondylolisthesis. Neurogenic claudication. History/Risk Factors: Previous vein surgery, Hypertension & Hyperlipidemia. Clinical Indicators: Presented as above, discharge held due to urinary retention requiring queen catheter. UA 10/6: clear, trace protein, trace blood, RBC 9. Treatment: Queen catheter re-insertion on POD 5 status post spinal surgery. Patient was straight cathed prior to Queen insertion. Heparin sc, Flomax, [place], Dulcolax, Fleets enema, Senokot, IV Cefazolin, IV fl rate 75. In order to accurately reflect this patients severity of illness, please clarify if the post-operative diagnosis of urinary retention is: An expected post-procedural or post-surgical condition, please specify cause. An unexpected post-procedural or post-surgical condition related to surgical care (a complication of care), please specify cause if known. An unexpected post-procedural or post-surgical condition, related to the patients underlying medical comorbidities Other, please specify ____ Unable to determine (Last Revision: August 2018) Through the course the patient's recovery is he has had some urinary retention and necessitated reinsertion of Queen catheter. This is somewhat unexpected as we anticipated the patient would continued progress and be able to void well on his own in the couple of days postoperatively. However this may be due to underlying medical comorbidities such as undiagnosed benign prostatic hypertrophy, due to the patient's size and obesity, as well as bladder distention with his retention initially. It is difficult to determine the specific cause and we are unable to determine the absolute cause of this point. MTDD
[2019-02-06] MEDS: HEPARIN SODIUM,PORCINE 5,000 UNIT/ML 1 ML VIAL SQ SCH ×2 (15:06→23:50)
[2019-02-07] MEDS: HYDROcodone/APAP 10-325MG 1 EACH TAB PO PRN ×4 (04:19→15:26)
[2019-02-07] MEDS: HEPARIN SODIUM,PORCINE 5,000 UNIT/ML 1 ML VIAL SQ SCH ×2 (07:58→15:26)
[2019-02-07] MEDS: MULTIVITAMINS, THERA 1 EACH TAB PO SCH (07:58)
[2019-02-07] MEDS: LISINOPRIL 20 MG TAB PO SCH (07:59)
[2019-02-07] MEDS: CHOLECALCIFEROL 1,000 UNIT TAB PO SCH (07:59)
[2019-02-07] MEDS: CALCIUM CARBONATE 500 MG CHEWABLE PO SCH (07:59)
[2019-02-07] MEDS: TAMSULOSIN 0.4 MG CAP.ER.24H PO SCH (07:59)
[2019-02-07] MEDS: ATORVASTATIN 20 MG TAB PO SCH (07:59)
[2019-02-07] MEDS: SENNOSIDES-DOCUSATE SODIUM 1 EACH TAB PO SCH (07:59)
[2019-02-07] MEDS: BISACODYL 10 MG SUPP RECTAL SCH (07:59)
--- NOTE | 2019-02-07 12:53 | P.PN ---
Progress Note - Text Progress Note Date: 02/07/19 Orthopedic Spine: Patient is a pleasant 58-year-old male who is seen and examined at the bedside following posterior lateral decompression and fusion performed last Wednesday. He has had significant improvement overall in regards to his low back pain and lower extremity radiculopathy. He does have some pain radiates from the lumbar spine, into the buttocks, down the posterior thigh into the calves. He feels he was ready for discharge home from a lumbar spine standpoint but has had increased difficulty with urinary retention, constipation, and right medial distal thigh pain. He is been started on Flomax and a Parikh catheter has been reinserted. Parikh catheter has been discontinued since yesterday. He is currently trying to void on his own. He had a suppository yesterday and was able to have a small bowel movement. He has not had a large bowel movement. He denies any abdominal pain. He is also been experiencing increased pain, swelling, and erythema over the right distal medial thigh. He denies any injuries. He does have a history of previous surgical intervention at this same location for varicose veins years ago. An ultrasound Doppler of the right lower extremity but did not show evidence of DVT but did show evidence of superficial vein thrombosis involving the long and short saphenous veins. He feels his right medial distal thigh pain has been worsening over the past day or so but feels more controlled today. He has been seen and examined by vascular disease who is not currently planned for acute surgical intervention. They're planning to have him follow-up in the outpatient setting for further evaluation with follow-up ultrasound. He has been able to ambulate to the restroom. His pain continues to be control with oral medications. He is eating without difficulty. Currently does not complain of nausea, vomiting, fever, or chills. Patient has had a medical history which includes hypertension and hyperlipidemia. Physical Exam Lumbar Fusion: Status post surgical day number 6 Patient is awake, alert, and oriented 3 Vital signs stable Abdomen is soft nontender Good chest excursion with deep inspiration and expiration Dorsiflexion, plantarflexion, and extensor hallucis longus positive sustained bilaterally No signs or symptoms of DVT; no calf pain; pneumatic cuffs not currently intact bilateral lower extremities Dressing is removed during physical examination; incision sites are clean and dry with no active drainage or obvious sign of infection No significant pain on palpation over the surgical sites Neurovascularly intact bilaterally lower extremities Parikh catheter intact Evidence of some swelling, erythema, and mild purple discoloration of the right medial distal thigh He will palpation over the right medial distal thigh Evidence of multiple healed incisions along the right medial distal thigh following previous surgical intervention Pertinent studies: Ultrasound venous Doppler duplex right lower extremity: Negative for DVT however evidence of superficial vein thrombosis involving the long and short saphenous veins Assessment: Status post L4-5 minimally invasive posterior lateral decompression and fusion with transforaminal lumbar interbody fusion Low back pain Bilateral lower extremity radiculopathy L4-5 spondylolisthesis Neurogenic claudication History of hypertension and hyperlipidemia Right medial distal thigh pain and swelling Superficial vein thrombosis involving the right long and short saphenous veins History of previous varicose vein surgery right lower extremity Urinary retention Constipation Plan: 1. Ambulate as tolerated; work with Physical Therapy to increase mobilization 2. Continue pain control with oral medications MAPS has been reviewed on 02/03/2019 with an Overall Overdose Risk Score of 000. An "Opiod Start Talking" Forn has been signed by the patient and myself in place in the patient's chart. A prescription has been written for [place] 5 mg /325 mg 1-2 tabs every 4 hours as needed for pain, dispensed #84. Prescription has been sent electronically to his pharmacy. Patient may resume other previous prescribed home medications at the time of discharge while avoiding anti- inflammatories over the next 6 weeks postoperatively. 3. Dressing over the incision sites have been removed. Patient may shower without a dressing at this time. 4. Medical management can continue to manage patient for patient's other medical issues including urinary retention and constipation 5. We will continue to follow the patient closely; if the patient is able to improve in regards to urinary retention, constipation, and his right distal medial thigh pain and swelling, we'll plan for discharge home today, 02/07/2019. We discussed he must be able to void on his own and must be able to have a bowel movement prior to discharge from an orthopedic spine standpoint. He will also need clearance from vascular surgery. 6. Patient is currently expanding some urinary retention. He is been started on Flomax and a Parikh catheter has been reinserted. Parikh catheter has been discontinued to see the patient is able to void on his own. 7. Patient is also having difficulty with constipation. He was given a suppository yesterday. He was able to have a small bowel movement but not a large one. He is not experiencing any abdominal pain. We will also plan to continue with Senokot and milk of magnesia to help facilitate a bowel movement. 8. He has been experiencing increased right medial distal thigh pain and swelling. The area shows some evidence of erythema and some purple discoloration. He does have a history of previous varicose vein surgery at this same location. Ultrasound Doppler was negative for DVT but did show evidence of superficial vein thrombosis involving the right long and short saphenous veins. He is having worsening pain and swelling at the site. He has been seen and examined by vascular surgery who is not play for acute surgical intervention. They're planning for follow-up evaluation outpatient setting approximately 1 week with follow-up ultrasound to be performed 9. Patient can follow-up with Randall Cardozo PA-C or Dr. Jose Luis Patel at [facility] in 2-3 weeks following discharge
[2019-02-07 13:33] VITALS: BMI 39.3
[2019-02-07 14:53] VITALS: BP 123/73; PULSE 82; RESP 14; TEMP 99.7
[2019-02-07] MEDS: MAGNESIUM HYDROXIDE 2,400 MG/10 ML CUP PO PRN (15:26)
== END 2019-02-07 18:30 | disposition home or self-care (01) | DRG 454 ==
LOC: 2ORMAIN 12:12 → 4SSUR 17:34
PROVIDERS: ADMIT Orthopaedic Surgery Orthopaedic Surgery of the Spine; ATTEND Orthopaedic Surgery Orthopaedic Surgery of the Spine
PROC: 0SG0071 Fusion of Lumbar Vertebral Joint with Autologous Tissue Substitute, Posterior Approach, Posterior Column, Open Approach (ICD-10-PCS; 2019-02-01)
PROC: 0ST20ZZ Resection of Lumbar Vertebral Disc, Open Approach (ICD-10-PCS; 2019-02-01)
PROC: 07DS3ZZ Extraction of Vertebral Bone Marrow, Percutaneous Approach (ICD-10-PCS; 2019-02-01)
PROC: 4A11X4G Monitoring of Peripheral Nervous Electrical Activity, Intraoperative, External Approach (ICD-10-PCS; 2019-02-01)
PROC: 30233N0 Transfusion of Autologous Red Blood Cells into Peripheral Vein, Percutaneous Approach (ICD-10-PCS; 2019-02-01)
PROC: 0SG00AJ Fusion of Lumbar Vertebral Joint with Interbody Fusion Device, Posterior Approach, Anterior Column, Open Approach (ICD-10-PCS; principal; 2019-02-01 13:15)
DX: M48.062 Spinal stenosis, lumbar region with neurogenic claudication (principal); I82.811 Embolism and thrombosis of superficial veins of right lower extremity; M41.26 Other idiopathic scoliosis, lumbar region; M43.16 Spondylolisthesis, lumbar region; M51.17 Intervertebral disc disorders with radiculopathy, lumbosacral region; K59.00 Constipation, unspecified; R33.9 Retention of urine, unspecified; I10 Essential (primary) hypertension; E78.5 Hyperlipidemia, unspecified; M72.2 Plantar fascial fibromatosis; E66.9 Obesity, unspecified; Z68.39 Body mass index [BMI] 39.0-39.9, adult; Z79.899 Other long term (current) drug therapy; Z86.79 Personal history of other diseases of the circulatory system; Z87.891 Personal history of nicotine dependence; Z98.890 Other specified postprocedural states; Z83.3 Family history of diabetes mellitus; Z82.49 Family history of ischemic heart disease and other diseases of the circulatory system
CPT/HCPCS: 72100; 80048; 81001; 83605; 85025; 86850; 86900; 86901; 87040; 87070; 94760

== ENCOUNTER 2019-02-11 10:18 | Emergency (ER) | payer OTHER ==
[2019-02-11 10:24] VITALS: RESP 18
--- NOTE | 2019-02-11 10:44 | ED ---
Lower Extremity Injury HPI - General Chief Complaint: Extremity Injury, Lower Stated Complaint: Poss Blood Clot Time Seen by Provider: 02/11/19 10:25 Source: patient, RN notes reviewed, old records reviewed Mode of arrival: ambulatory Limitations: no limitations - History of Present Illness Initial Comments: Patient's a 58-year-old male presents emergency department today for in an superficial thrombophelbitis of right thigh. Patient reports he was diagnosed with a superficial clot earlier this week after he had a back surgery on February 01. Patient reports he called his vascular surgeon Dr. Bales he said follow- up with him next week the office. Patient reports that since his last ultrasound he's had increased redness swelling extending all the way up to the groin. Patient denies any chest pain or shortness of breath. - Related Data Home Medications Medication Instructions Recorded Confirmed Celecoxib [CeleBREX] 200 mg PO DAILY 12/16/17 02/01/19 Cholecalciferol [Vitamin D3] 5,000 unit PO DAILY 12/16/17 02/01/19 Cyclobenzaprine [Flexeril] 10 mg PO 2000 PRN 12/16/17 02/01/19 Gabapentin 600 mg PO TID PRN 12/16/17 02/01/19 Multivitamins, Thera [Multivitamin 1 tab PO DAILY 12/16/17 02/01/19 (formulary)] Ramipril 10 mg PO QAM 12/16/17 02/01/19 Simvastatin 40 mg PO DAILY 12/16/17 02/01/19 Calcium Carbonate [Calcium] 300 mg PO BID 01/26/19 02/01/19 Fortesta 30 mg TOPICAL BID 01/26/19 02/01/19 Previous Rx's Medication Instructions Recorded Hydrocodone/Acetaminophen [[place] 1 - 2 each PO Q4HR PRN #84 tab 02/03/19 5-325] Tamsulosin HCl [Flomax] 0.4 mg PO QAM #30 capsule 02/05/19 Apixaban [Eliquis Starter Pack 10 mg PO DIRECTED 30 Days #1 02/11/19 (for VTE)] pack Cephalexin [Keflex] 500 mg PO Q8HR #21 cap 02/11/19 Allergies Allergy/AdvReac Type Severity Reaction Status Date / Time No Known Allergies Allergy Verified 02/11/19 10:20 Review of Systems ROS Statement: Those systems with pertinent positive or pertinent negative responses have been documented in the HPI. ROS Other: All systems not noted in ROS Statement are negative. Past Medical History Past Medical History: Hyperlipidemia, Hypertension, Osteoarthritis (OA) Additional Past Medical History / Comment(s): hx colon polyps, varicose veins, occ acid reflux, two bulging disk and one herniated disk, History of Any Multi-Drug Resistant Organisms: None Reported Past Surgical History: Back Surgery, Orthopedic Surgery Additional Past Surgical History / Comment(s): arthroscopy lt knee, varicose veins removed rt leg, liposuction Past Anesthesia/Blood Transfusion Reactions: Motion Sickness Past Psychological History: No Psychological Hx Reported Smoking Status: Former smoker Past Alcohol Use History: Occasional Past Drug Use History: None Reported - Past Family History Mother Family Medical History: Diabetes Mellitus Father Family Medical History: Cancer, Diabetes Mellitus, Respiratory Disorder Additional Family Medical History / Comment(s): prostate, emphysema General Exam - General Exam Comments Initial Comments: 58 year old male, no distress. Limitations: no limitations General appearance: alert, in no apparent distress Head exam: Present: atraumatic, normocephalic, normal inspection Eye exam: Present: normal appearance, PERRL, EOMI. Absent: scleral icterus, conjunctival injection, periorbital swelling ENT exam: Present: normal exam, mucous membranes moist Neck exam: Present: normal inspection. Absent: tenderness, meningismus, lymphadenopathy Respiratory exam: Present: normal lung sounds bilaterally. Absent: respiratory distress, wheezes, rales, rhonchi, stridor Cardiovascular Exam: Present: regular rate, normal rhythm, normal heart sounds. Absent: systolic murmur, diastolic murmur, rubs, gallop, clicks GI/Abdominal exam: Present: soft, normal bowel sounds. Absent: distended, tenderness, guarding, rebound, rigid Extremities exam: Present: normal inspection, full ROM, normal capillary refill, other (Patient has erythema of medial knee and thigh). Absent: tenderness, pedal edema, joint swelling, calf tenderness Back exam: Present: normal inspection Neurological exam: Present: alert Psychiatric exam: Present: normal affect, normal mood Course Vital Signs 02/11/19 10:21 Temperature 97.9 F Pulse Rate 101 H Respiratory 18 Rate Blood Pressure 126/71 O2 Sat by Pulse 99 Oximetry - Reevaluation(s) Reevaluation #1: 02/11/19 11:49 Discussed the case with Dr. Amado who was covering for Dr. Robertson. He states that we can start the Patient on anticoagulation 10 days postop without any problems. Medical Decision Making - Medical Decision Making This is a 58-year-old male presented today for concern for increased redness and swelling over the right lower extremity. He is sinus with superficial thrombus, however he states it has been coming worse with redness and swelling extending up to the groin. At this time he has no evidence of DVT on ultrasound. He denies any chest pain or shortness of breath. Ultrasound did show positive thrombus within the great saphenous vein. With him being symptomatic we can initiate the Patient on blood thinners, we'll give the Patient a dose of Eliquis. Discussed with the concern for both for phlebitis we'll also put the Patient on antibiotic, Keflex. I discussed the case with Dr. Obrien. He is scheduled to have a follow-up appointment with Dr. Justin next week. Patient understands treatment plan. - Radiology Data Radiology results: report reviewed Ultrasound is negative for DVT within the right leg. Examination is positive for superficial phlebitis within the great saphenous vein. Disposition Clinical Impression: Saphenous vein phlebitis Disposition: HOME SELF-CARE Condition: Good Instructions (If sedation given, give patient instructions): Superficial Thrombophlebitis (ED) Additional Instructions: Please use medication as discussed. Please follow up with family doctor if symptoms have not improved over the next two days. Please return to the emergency room if your symptoms increase or worsen or for any other concerns. Prescriptions: Apixaban [Eliquis Starter Pack (for VTE)] 10 mg PO DIRECTED 30 Days #1 pack Cephalexin [Keflex] 500 mg PO Q8HR #21 cap Is patient prescribed a controlled substance at d/c from ED?: No Referrals: Ninoska Carlson DO [Primary Care Provider] - 1-2 days Harman Hemphill DO [Doctor of Osteopathic Medicine] - 1-2 days Maik Bales DO [STAFF PHYSICIAN] - 1-2 days Time of Disposition: 11:51
--- NOTE | 2019-02-11 11:33 | US ---
EXAMINATION TYPE: US venous doppler duplex LE RT DATE OF EXAM: 02/11/2019 11:06 AM COMPARISON: Previous study dated 02/05/2019. CLINICAL HISTORY: pain, swelling saphenous vein clot. SIDE PERFORMED: Right TECHNIQUE: The lower extremity deep venous system is examined utilizing real time linear array sonog giselle with graded compression, doppler sonography and color-flow sonography. VESSELS IMAGED: External Iliac Vein (EIV) Common Femoral Vein Greater Saphenous Vein * Femoral Vein Popliteal Vein Proximal Calf Veins (* superficial vessels) Right Leg: Negative for DVT The GSV is enlarged and thrombosed from the origin at the CFV down to the knee. The patient's inner l eg is red and warm. No popliteal fossa lesion is seen. IMPRESSION: 1. THIS EXAMINATION IS NEGATIVE FOR DVT WITHIN THE RIGHT LEG. 2. THIS EXAMINATION IS POSITIVE FOR SUPERFICIAL PHLEBITIS WITHIN THE GREATER SAPHENOUS VEIN.
[2019-02-11] MEDS ORDERED: CEPHALEXIN 500MG STARTER PACK 4 CAP BTL PO STA (11:46)
[2019-02-11] MEDS ORDERED: APIXABAN 5 MG TAB PO STA (11:46)
[2019-02-11 12:29] VITALS: BP 138/76; PULSE 87; TEMP 97.4
== END 2019-02-11 12:29 | disposition home or self-care (01) ==
LOC: EC 10:18
DX: I80.01 Phlebitis and thrombophlebitis of superficial vessels of right lower extremity (principal); E78.5 Hyperlipidemia, unspecified; I10 Essential (primary) hypertension; M19.90 Unspecified osteoarthritis, unspecified site; Z87.891 Personal history of nicotine dependence; Z79.1 Long term (current) use of non-steroidal anti-inflammatories (NSAID); Z79.890 Hormone replacement therapy; Z79.899 Other long term (current) drug therapy; Z98.890 Other specified postprocedural states
CPT/HCPCS: 99284

== ENCOUNTER → 2023-04-06 | Outpatient (CLI) | payer OTHER ==
--- NOTE | 2023-04-06 10:55 | US ---
EXAMINATION TYPE: US venous doppler duplex LE LT DATE OF EXAM: 04/06/2023 10:46 AM COMPARISON: NONE CLINICAL INDICATION: Male, 62 years old with history of I80.9 LLE PHLEBITIS AND THROMBOPHLEBITIS OF U NSPEC; Hx DVT LLE with removal about 8 years ago. Patient fell and hurt left knee about 2 weeks ago, pain since with onset of swelling today. SIDE PERFORMED: Left TECHNIQUE: The lower extremity deep venous system is examined utilizing real time linear array sonog giselle with graded compression, doppler sonography and color-flow sonography. VESSELS IMAGED: Common Femoral Vein Deep Femoral Vein Greater Saphenous Vein * Femoral Vein Popliteal Vein Small Saphenous Vein * Proximal Calf Veins (* superficial vessels) Left Leg: Negative for DVT IMPRESSION: No evidence for DVT within the left lower extremity imaged from the groin to the upper calf.
== END | disposition home or self-care (01) ==
LOC: RADUSWWP 10:13
PROVIDERS: ATTEND Orthopaedic Surgery
DX: I80.9 Phlebitis and thrombophlebitis of unspecified site (principal); Z86.718 Personal history of other venous thrombosis and embolism

== ENCOUNTER 2023-04-14 16:16 | Emergency (ER) | payer OTHER ==
[2023-04-14 16:41] VITALS: BP 139/78; PULSE 85; RESP 18; TEMP 97.4
--- NOTE | 2023-04-14 16:55 | ED ---
Allergic Reaction HPI - General Chief complaint: Allergic Reaction Stated complaint: allergic reaction Time Seen by Provider: 04/14/23 16:29 Source: patient Mode of arrival: ambulatory Limitations: no limitations - History of Present Illness Initial Comments: 62-year-old male with a past medical history significant for hypertension on ramipril testing to the ED with a chief complaint of ALLERGIC reaction. Patient states earlier today started to notice swelling of his upper lip. States this started today. Notes when he woke up this morning did not notice any swelling. Reports that he took his usual medications at 6 AM and this started at approximately 11 AM. This is not painful however patient notes a pressure-like sensation. Denies contact with any new allergens. No new medications. No chest pain or shortness of breath. No difficulty swallowing. Denies fever or chills. - Related Data Home Medications Medication Instructions Recorded Confirmed Celecoxib [CeleBREX] 200 mg PO DAILY 12/16/17 02/11/19 Cholecalciferol [Vitamin D3] 5,000 unit PO DAILY 12/16/17 02/11/19 Cyclobenzaprine [Flexeril] 10 mg PO HS PRN 12/16/17 02/11/19 Gabapentin 600 mg PO TID PRN 12/16/17 02/11/19 Multivitamins, Thera [Multivitamin 1 tab PO DAILY 12/16/17 02/11/19 (formulary)] Ramipril 10 mg PO DAILY 12/16/17 02/11/19 Simvastatin 40 mg PO DAILY 12/16/17 02/11/19 Calcium Carbonate [Calcium] 300 mg PO BID 01/26/19 02/11/19 Fortesta 30 mg TOPICAL BID 01/26/19 02/11/19 Hydrocodone/Acetaminophen [[place] 1 - 2 tab PO Q4HR PRN 02/11/19 02/11/19 5-325] Tamsulosin HCl [Flomax] 0.4 mg PO DAILY 02/11/19 02/11/19 Previous Rx's Medication Instructions Recorded Apixaban [Eliquis Starter Pack 10 mg PO DIRECTED 30 Days #1 02/11/19 (for VTE)] pack Cephalexin [Keflex] 500 mg PO Q8HR #21 cap 02/11/19 amLODIPine [Norvasc] 5 mg PO DAILY 30 Days #30 tab 04/14/23 Allergies Allergy/AdvReac Type Severity Reaction Status Date / Time No Known Allergies Allergy Verified 04/14/23 16:23 Review of Systems ROS Statement: Those systems with pertinent positive or pertinent negative responses have been documented in the HPI. ROS Other: All systems not noted in ROS Statement are negative. Past Medical History Past Medical History: Hyperlipidemia, Hypertension, Osteoarthritis (OA) Additional Past Medical History / Comment(s): hx colon polyps, varicose veins, occ acid reflux, two bulging disk and one herniated disk, History of Any Multi-Drug Resistant Organisms: None Reported Past Surgical History: Back Surgery, Orthopedic Surgery Additional Past Surgical History / Comment(s): arthroscopy lt knee, varicose veins removed rt leg, liposuction Past Anesthesia/Blood Transfusion Reactions: Motion Sickness Past Psychological History: No Psychological Hx Reported Past Alcohol Use History: Occasional Past Drug Use History: None Reported - Past Family History Mother Family Medical History: Diabetes Mellitus Father Family Medical History: Cancer, Diabetes Mellitus, Respiratory Disorder Additional Family Medical History / Comment(s): prostate, emphysema General Exam Limitations: no limitations General appearance: alert, in no apparent distress ENT exam: Present: other (Angioedema of the upper lip. No significant oropharyngeal swelling. Tolerating secretions. No stridor) Respiratory exam: Present: normal lung sounds bilaterally Cardiovascular Exam: Present: regular rate, normal rhythm GI/Abdominal exam: Present: soft Neurological exam: Present: alert, oriented X3 Course Vital Signs 04/14/23 04/14/23 16:20 16:52 Temperature 97.4 F L Pulse Rate 85 Respiratory 18 18 Rate Blood Pressure 139/78 Medical Decision Making - Medical Decision Making Was pt. sent in by a medical professional or institution (Dr. PA, RELATIONS LIAISON, urgent care, hospital, or retirement...) When possible be specific @ -No Did you speak to anyone other than the patient for history (EMS, parent, family, police, friend...)? What history was obtained from this source @ -No Did you review nursing and triage notes (agree or disagree)? Why? @ -I reviewed and agree with nursing and triage notes Were old charts reviewed (outside hosp., previous admission, EMS record, old EKG, old radiological studies, urgent care reports/EKG's, retirement records)? Report findings @ -No old charts were reviewed Differential Diagnosis (chest pain, altered mental status, abdominal pain women, abdominal pain men, vaginal bleeding, weakness, fever, dyspnea, syncope, headache, dizziness, GI bleed, back pain, seizure, CVA, palpatations, mental health, musculoskeletal)? @ -Anaphylaxsis, facial cellulitis, angioedema. This is not meant to be an all-inclusive list. EKG interpreted by me (3pts min.). @ -None X-rays interpreted by me (1pt min.). @ -None done CT interpreted by me (1pt min.). @ -None done U/S interpreted by me (1pt. min.). @ -None done What testing was considered but not performed or refused? (CT, X-rays, U/S, labs)? Why? @ -None What meds were considered but not given or refused? Why? @ -None Did you discuss the management of the patient with other professionals (professionals i.e. , PA, RELATIONS LIAISON, lab, RT, psych nurse, manager social work, sexual abuse counsellor, teacher, president and chief commercial officer, manager case)? Give summary @ -No Was smoking cessation discussed for >3mins.? @ -No Was critical care preformed (if so, how long)? @ -No Were there social determinants of health that impacted care today? How? (Homelessness, low income, unemployed, alcoholism, drug addiction, transportation, low edu. Level, literacy, decrease access to med. care, penitentiary, rehab)? @ -No Was there de-escalation of care discussed even if they declined (Discuss DNR or withdrawal of care, Hospice)? DNR status @ -No What co-morbidities impacted this encounter? (DM, HTN, Smoking, COPD, CAD, Cancer, CVA, ARF, Chemo, Hep., AIDS, mental health diagnosis, sleep apnea, morbid obesity)? @ -HTN Was patient admitted / discharged? Hospital course, mention meds given and route, prescriptions, significant lab abnormalities, going to OR and other pertinent info. @ -Discharge 62-year-old male presenting to the ED with onset of swelling of the upper lips. Exam shows no stridor Winifred distress and patient is tolerating secretions well. At this time vital signs stable and afebrile. Symptoms likely secondary to MELANIE inhibitor-induced angioedema. Instructed patient to discontinue ramipril. Patient placed on amlodipine 5 mg and advised to follow up with his primary care provider. Discussed strict return precautions with patient who verbalizes agreement. Undiagnosed new problem with uncertain prognosis? @ -No Drug Therapy requiring intensive monitoring for toxicity (Heparin, Nitro, Insulin, Cardizem)? @ -No Were any procedures done? @ -No Diagnosis/symptom? @ -MELANIE inhibitor angioedema Acute, or Chronic, or Acute on Chronic? @ -Acute Uncomplicated (without systemic symptoms) or Complicated (systemic symptoms)? @ -Uncomplicated Side effects of treatment? @ -No Exacerbation, Progression, or Severe Exacerbation? @ -No Poses a threat to life or bodily function? How? (Chest pain, [place], MS, pneumonia, PE, COPD, DKA, ARF, appy, cholecystitis, CVA, Diverticulitis, Homicidal, Suicidal, threat to staff... and all critical care pts) @ -No Disposition Clinical Impression: Angioedema of lips Disposition: HOME SELF-CARE Condition: Good Instructions (If sedation given, give patient instructions): Angioedema (ED) Additional Instructions: Please return to the Emergency Department if symptoms worsen or any other concerns. Please discontinue Ramipril. Please follow-up with your primary care provider in regards to discontinuing this medication and starting new antihypertensive. Prescriptions: amLODIPine [Norvasc] 5 mg PO DAILY 30 Days #30 tab Is patient prescribed a controlled substance at d/c from ED?: No Referrals: Ninoska Carlson DO [Primary Care Provider] - 1-2 days Time of Disposition: 17:03
== END 2023-04-14 17:10 | disposition home or self-care (01) ==
LOC: EC 16:16
DX: T78.3XXA Angioneurotic edema, initial encounter (principal); E78.5 Hyperlipidemia, unspecified; I10 Essential (primary) hypertension; M19.90 Unspecified osteoarthritis, unspecified site; Z79.899 Other long term (current) drug therapy
CPT/HCPCS: 99283

== ENCOUNTER 2023-05-24 07:31 | Day surgery (SDC) | payer OTHER ==
[2023-05-19 10:02] VITALS: BMI 38.9
[~2023-05-24 07:31] MED LIST changes: -BACITRACIN 50,000 UNIT, POLYMYXIN B 500,000 UNIT in SODIUM CHLORIDE 0.9% IRRIGATIO 1,00... IRRIGATION ONE; -DEXAMETHASONE SOD PHOSPHATE 10 MG/ML 1 ML VIAL IV ONE; +LACTATED RINGERS 1,000 ML IV SCH; -LIDOCAINE 1% 20 ML VIAL (10MG/ML) FOR IV START INTRADERMA PRN; -MIDAZOLAM 2 MG/2 ML VIAL IV PRN; -ceFAZolin 3 GM in SODIUM CHLORIDE 0.9% 100 ML IVPB ONE
[2023-05-24 08:01] LABS: Glucose,Whole Blood 108 mg/dL (70-110)
[2023-05-24 08:05] VITALS: RESP 16; TEMP 97
[2023-05-24] MEDS ORDERED: PROPOFOL 10 MG/ML 20 ML VIAL IV ONE (08:42)
--- NOTE | 2023-05-24 08:48 | P.GSHP ---
History of Present Illness H&P Date: 05/24/23 Chief Complaint: Screening colonoscopy This is a 8-year-old male presents today for screening colonoscopy. Patient denies a significant GI complaints. Past Medical History Past Medical History: Diabetes Mellitus, GERD/Reflux, Hyperlipidemia, Hypertension, Osteoarthritis (OA) Additional Past Medical History / Comment(s): hx colon polyps, varicose veins, History of Any Multi-Drug Resistant Organisms: None Reported Past Surgical History: Back Surgery, Orthopedic Surgery Additional Past Surgical History / Comment(s): arthroscopy lt knee, varicose veins removed rt leg, liposuction, COLONOSCOPY Past Anesthesia/Blood Transfusion Reactions: Motion Sickness Smoking Status: Former smoker - Past Family History Mother Family Medical History: Diabetes Mellitus Father Family Medical History: Cancer, Diabetes Mellitus, Respiratory Disorder Additional Family Medical History / Comment(s): prostate, emphysema Medications and Allergies Home Medications Medication Instructions Recorded Confirmed Type Celecoxib [CeleBREX] 200 mg PO DAILY 12/16/17 05/24/23 History Cholecalciferol [Vitamin D3] 5,000 unit PO DAILY 12/16/17 05/24/23 History Cyclobenzaprine [Flexeril] 10 mg PO HS PRN 12/16/17 05/24/23 History Gabapentin 600 mg PO TID PRN 12/16/17 05/24/23 History Multivitamins, Thera [Multivitamin 1 tab PO DAILY 12/16/17 05/24/23 History (formulary)] Calcium Carbonate [Calcium] 300 mg PO BID 01/26/19 05/24/23 History amLODIPine [Norvasc] 5 mg PO DAILY 30 Days #30 tab 04/14/23 05/24/23 Rx Atorvastatin [Lipitor] 40 mg PO DAILY 05/19/23 05/24/23 History Omeprazole 20 mg PO DAILY 05/19/23 05/24/23 History Testosterone [Vogelxo 1%] 1 applic TRANSDERM DAILY 05/19/23 05/24/23 History Topiramate 100 mg PO HS 05/19/23 05/24/23 History metFORMIN HCL 500 mg PO DAILY 05/19/23 05/24/23 History tadalafiL 5 mg PO DAILY 05/19/23 05/24/23 History Allergies Allergy/AdvReac Type Severity Reaction Status Date / Time MELANIE Inhibitors Allergy Swelling Verified 05/24/23 07:54 Surgical - Exam Vital Signs Temp Pulse Resp BP Pulse Ox 97 F L 75 16 147/79 94 L 05/24/23 07:54 05/24/23 07:54 05/24/23 07:54 05/24/23 07:54 05/24/23 07:54 - General well developed, well nourished, no distress - Eyes PERRL - ENT normal pinna - Neck no masses - Respiratory normal expansion - Cardiovascular Rhythm: regular - Abdomen Abdomen: soft, non tender Assessment and Plan Assessment: We'll perform screening colonoscopy
--- NOTE | 2023-05-24 09:00 | P.OP ---
Date of Procedure: 05/24/23 Preoperative Diagnosis: Screening colonoscopy Postoperative Diagnosis: Normal colon Procedure(s) Performed: Colonoscopy Anesthesia: MAC Surgeon: Raul Chen Pathology: none sent Condition: stable Disposition: PACU Description of Procedure: T PROCEDURE: The patient was placed on the endoscopy table in the lateral position. Digital rectal examination was performed which revealed no abnormalities. The prostate was symmetrical without nodules. Flexible colonoscope was then placed in the patient's anus and passed throughout the entire colon. The ileocecal valve was visualized. The cecum, ascending, transverse, descending and sigmoid colon were normal. The rectum was normal as well. There were no masses, polyps or diverticula noted in the entire colon. SUMMARY OF FINDINGS: Normal colonoscopy.
[2023-05-24 09:11] LABS: Glucose,Whole Blood 102 mg/dL (70-110)
[2023-05-24 09:45] VITALS: BP 116/68; PULSE 78
== END 2023-05-24 09:52 | disposition home or self-care (01) ==
LOC: ORWHC2ENDO 07:31
PROVIDERS: ATTEND Surgery
DX: Z12.11 Encounter for screening for malignant neoplasm of colon (principal); E11.9 Type 2 diabetes mellitus without complications; E78.5 Hyperlipidemia, unspecified; I10 Essential (primary) hypertension; K21.9 Gastro-esophageal reflux disease without esophagitis; M19.90 Unspecified osteoarthritis, unspecified site; Z79.1 Long term (current) use of non-steroidal anti-inflammatories (NSAID); Z79.84 Long term (current) use of oral hypoglycemic drugs; Z79.890 Hormone replacement therapy; Z87.891 Personal history of nicotine dependence; Z79.899 Other long term (current) drug therapy; Z88.8 Allergy status to other drugs, medicaments and biological substances
CPT/HCPCS: 45378; J2704

== ENCOUNTER → 2023-06-24 | Outpatient (CLI) | payer OTHER ==
--- NOTE | 2023-06-24 16:48 | US ---
EXAMINATION TYPE: US venous doppler duplex LE BI DATE OF EXAM: 06/24/2023 4:22 PM COMPARISON: NONE CLINICAL INDICATION: Male, 62 years old with history of I82.40 ACUTE EMBOLISM AND THOMBOS; Right lowe r leg pain SIDE PERFORMED: right TECHNIQUE: The lower extremity deep venous system is examined utilizing real time linear array sonog giselle with graded compression, doppler sonography and color-flow sonography. Grayscale, color doppler, and spectral Doppler imaging was performed of the deep veins of the lower e xtremities, with assessment of flow, compressibility, and vascular waveforms throughout the deep veno us structures. VESSELS IMAGED: Common Femoral Vein Deep Femoral Vein Greater Saphenous Vein * Femoral Vein Popliteal Vein Small Saphenous Vein * Proximal Calf Veins (* superficial vessels) FINDINGS/IMPRESSION: RIGHT LOWER EXTREMITY: There is no evidence of deep venous thrombosis. However, the right GSV appears thrombosed and non-compressible, and there is superficial vein thrombu s in the lower leg at patient's area of concern . LEFT LOWER EXTREMITY: Negative for DVT, left lower extremity.
== END | disposition home or self-care (01) ==
LOC: RADUSWWP 14:56
PROVIDERS: ATTEND Family Medicine
DX: I82.402 Acute embolism and thrombosis of unspecified deep veins of left lower extremity (principal)
CPT/HCPCS: 93970

== ENCOUNTER 2024-04-23 18:05 | Emergency (ER) | payer OTHER ==
[2024-04-23 18:26] VITALS: RESP 18; TEMP 98
--- NOTE | 2024-04-23 18:35 | ED ---
Wound/Laceration HPI - General Chief Complaint: Wound/Laceration Stated Complaint: R chest injury/R hand hand pointer finger injury Time Seen by Provider: 04/23/24 18:35 Source: patient, RN notes reviewed Mode of arrival: ambulatory Limitations: no limitations - History of Present Illness Initial Comments: 63-year-old presented to ER for evaluation of right second digit and chest injury. Patient states he is renovating his daughter's home and today while hammering a crowbar a piece of metal flew up and hit him in his right chest. He is reporting bruising to the area. He does take Xarelto due to a history of blood clots. He denies any difficulty breathing or chest discomfort. Patient also reports earlier in the day he accidentally scraped his right second digit on a brendon staple. He states bleeding is controlled at this time. No limited range of motion. Patient's tetanus was completed in 2018. No other complaints at this time. - Related Data Home Medications Medication Instructions Recorded Confirmed Celecoxib [CeleBREX] 200 mg PO DAILY 12/16/17 04/23/24 Cyclobenzaprine [Flexeril] 10 mg PO HS PRN 12/16/17 04/23/24 Gabapentin 600 mg PO DAILY PRN 12/16/17 04/23/24 Multivitamins, Thera [Multivitamin 1 tab PO DAILY 12/16/17 04/23/24 (formulary)] Calcium Carbonate [Calcium] 1,200 mg PO DAILY 01/26/19 04/23/24 Atorvastatin [Lipitor] 40 mg PO DAILY 05/19/23 04/23/24 Omeprazole 20 mg PO DAILY 05/19/23 04/23/24 Topiramate 100 mg PO HS 05/19/23 04/23/24 tadalafiL 5 mg PO DAILY 05/19/23 04/23/24 Aspirin EC [Ecotrin Low Dose] 81 mg PO DAILY 04/23/24 04/23/24 Cholecalciferol [Vitamin D3 (125 125 mcg PO DAILY 04/23/24 04/23/24 Mcg = 5000 Iu)] Loratadine 10 mg PO DAILY 04/23/24 04/23/24 Rivaroxaban [Xarelto] 20 mg PO DAILY 04/23/24 04/23/24 Previous Rx's Medication Instructions Recorded amLODIPine [Norvasc] 5 mg PO DAILY 30 Days #30 tab 04/14/23 Allergies Allergy/AdvReac Type Severity Reaction Status Date / Time MELANIE Inhibitors Allergy Swelling Verified 04/23/24 19:02 peanut Allergy Swelling Verified 04/23/24 19:02 Review of Systems ROS Statement: Those systems with pertinent positive or pertinent negative responses have been documented in the HPI. ROS Other: All systems not noted in ROS Statement are negative. Past Medical History Past Medical History: Deep Vein Thrombosis (DVT), Hyperlipidemia, Hypertension, Osteoarthritis (OA) Additional Past Medical History / Comment(s): hx colon polyps, varicose veins, occ acid reflux, two bulging disk and one herniated disk, History of Any Multi-Drug Resistant Organisms: None Reported Past Surgical History: Back Surgery, Orthopedic Surgery Additional Past Surgical History / Comment(s): arthroscopy lt knee, varicose veins removed rt leg, liposuction Past Anesthesia/Blood Transfusion Reactions: Motion Sickness Past Psychological History: No Psychological Hx Reported Smoking Status: Former smoker Past Alcohol Use History: None Reported, Occasional Past Drug Use History: None Reported - Past Family History Mother Family Medical History: Diabetes Mellitus Father Family Medical History: Cancer, Diabetes Mellitus, Respiratory Disorder Additional Family Medical History / Comment(s): prostate, emphysema General Exam Limitations: no limitations General appearance: alert, in no apparent distress Respiratory exam: Present: normal lung sounds bilaterally, other (Right anterolateral contusion with pinpoint lexi noted. no bleeding present.). Absent: respiratory distress, wheezes, rales, rhonchi, stridor Cardiovascular Exam: Present: regular rate, normal rhythm, normal heart sounds. Absent: systolic murmur, diastolic murmur, rubs, gallop, clicks Extremities exam: Present: normal inspection, full ROM, normal capillary refill, other (0.5cm superficial scrape to distal right second digit pad. 1cm superficial scapre proximal to other wound. No active bleeding. ). Absent: tenderness, pedal edema, joint swelling, calf tenderness Neurological exam: Present: alert, oriented X3, CN II-XII intact Skin exam: Present: warm, dry, intact, normal color. Absent: rash Course Vital Signs 04/23/24 04/23/24 18:19 19:22 Temperature 98 F Pulse Rate 79 75 Respiratory 18 18 Rate Blood Pressure 138/75 130/85 O2 Sat by Pulse 98 98 Oximetry Medical Decision Making - Medical Decision Making Was pt. sent in by a medical professional or institution ([facility], [facility], urgent care, hospital, or halfway...) When possible be specific @ -No Did you speak to anyone other than the patient for history (EMS, parent, family, police, friend...)? What history was obtained from this source @ -No Did you review nursing and triage notes (agree or disagree)? Why? @ -I reviewed and agree with nursing and triage notes Were old charts reviewed (outside hosp., previous admission, EMS record, old EKG, old radiological studies, urgent care reports/EKG's, halfway records)? Report findings @ -No old charts were reviewed Differential Diagnosis (chest pain, altered mental status, abdominal pain women, abdominal pain men, vaginal bleeding, weakness, fever, dyspnea, syncope, headache, dizziness, GI bleed, back pain, seizure, CVA, palpatations, mental health, musculoskeletal)? @ -Laceration, abrasion, contusion, avulsion, foreign body this list is not meant to be all-inclusive EKG interpreted by me (3pts min.). @ -None done X-rays interpreted by me (1pt min.). @ -CXR interpreted by me for a pinpoint radiopaque foreign body noted to right axilla. No acute cardiopulmonary process. CT interpreted by me (1pt min.). @ -None done U/S interpreted by me (1pt. min.). @ -None done What testing was considered but not performed or refused? (CT, X-rays, U/S, labs)? Why? @ -None What meds were considered but not given or refused? Why? @ -None Did you discuss the management of the patient with other professionals (professionals i.e. [facility], [facility], lab, RT, psych nurse, hospice social worker, fraternity house cook, teacher, chairman and chief executive officer, case finisher)? Give summary @ -No Was smoking cessation discussed for >3mins.? @ -No Was critical care preformed (if so, how long)? @ -No Were there social determinants of health that impacted care today? How? (Homelessness, low income, unemployed, alcoholism, drug addiction, transportation, low edu. Level, literacy, decrease access to med. care, correction, re hab)? @ -No Was there de-escalation of care discussed even if they declined (Discuss DNR or withdrawal of care, Hospice)? DNR status @ -No What co-morbidities impacted this encounter? (DM, HTN, Smoking, COPD, CAD, Cancer, CVA, ARF, Chemo, Hep., AIDS, mental health diagnosis, sleep apnea, morbid obesity)? @ -History of DVTs patient is on Xarelto Was patient admitted / discharged? Hospital course, mention meds given and route, prescriptions, significant lab abnormalities, going to OR and other pertinent info. @ -Discharge. 63-year-old male presenting to the ER for evaluation of chest and finger injury. History and physical exam completed. Vitals within normal limits. Patient in no signs of acute distress nontoxic-appearing. At right anterior axillary line there is a contusion with a pinpoint lexi noted. No active bleeding or discharge with coughing. No paradoxical chest wall motions. Lung sounds heard throughout. No pinpoint tenderness. Patient is neurovascularly intact. There are also wounds to right second digit. No active bleeding. Patient has full active range of motion. CXR will be obtained due to mechanism of injury. CXR showing a radiopaque foreign body noted over right axilla measuring 2 mm. Tetanus updated. Upon reevaluation, patient resting comfortably in exam room no signs of acute distress. Results discussed with patient, all questions answered. I advised patient that given location of foreign body I will not attempt to manually remove given risks and foreign material will eventually work its way out of his skin. He is agreeable for this. Strict return parameters discussed. Patient discharged in stable condition with follow-up to PCP. Patient verbally expressed understanding and agreement with care plan. Case discussed with ED attending, Dr. Miller. Undiagnosed new problem with uncertain prognosis? @ -No Drug Therapy requiring intensive monitoring for toxicity (Heparin, Nitro, Insulin, Cardizem)? @ -No Were any procedures done? @ -No Diagnosis/symptom? @ -Superficial foreign body/superficial abrasion Acute, or Chronic, or Acute on Chronic? @ -Acute Uncomplicated (without systemic symptoms) or Complicated (systemic symptoms)? @ -Uncomplicated Side effects of treatment? @ -No Exacerbation, Progression, or Severe Exacerbation? @ -No Poses a threat to life or bodily function? How? (Chest pain, [place], [place], pneumonia, PE, COPD, DKA, ARF, appy, cholecystitis, CVA, Diverticulitis, Homicidal, Suicidal, threat to staff... and all critical care pts) @ -No - Radiology Data Radiology results: report reviewed, image reviewed Disposition Clinical Impression: Superficial abrasion, Superficial foreign body Disposition: HOME SELF-CARE Condition: Stable Additional Instructions: Follow-up with PCP. Return to the ER for any new or worsening concerns. Is patient prescribed a controlled substance at d/c from ED?: No Referrals: Ninoska Carlson DO [Primary Care Provider] - 1-2 days Time of Disposition: 19:14
--- NOTE | 2024-04-23 19:02 | XR ---
EXAMINATION TYPE: XR chest 2V DATE OF EXAM: 04/23/2024 6:54 PM COMPARISON: None CLINICAL INDICATION: Male, 63 years old with history of poss right chest fb; TECHNIQUE: XR chest 2V Frontal and lateral views of the chest. FINDINGS: Lungs/Pleura: There is no evidence of pleural effusion, focal consolidation, or pneumothorax. Pulmonary vascularity: Unremarkable. Heart/mediastinum: Cardiomediastinal silhouette is unremarkable. Musculoskeletal: No acute osseous pathology. Other findings: Hyperdense focus projecting over the right axilla measuring 2 mm. IMPRESSION: Hyperdense focus projecting over the right axilla measuring 2 mm correlate for radiopaque foreign bod y. No other foreign bodies identified. No acute cardiopulmonary disease/process. [facility], , 04/23/2024 6:59 PM
[2024-04-23] MEDS: DIPH,PERTUS(ACELL)TETVAC-LF 0.5 ML VIAL IM ONE (19:18)
[2024-04-23 19:26] VITALS: BP 130/85; PULSE 75
== END 2024-04-23 19:27 | disposition home or self-care (01) ==
LOC: EC 18:05
DX: S00.85XA Superficial foreign body of other part of head, initial encounter (principal); S60.410A Abrasion of right index finger, initial encounter; Z91.010 Allergy to peanuts; Z88.8 Allergy status to other drugs, medicaments and biological substances; Z87.891 Personal history of nicotine dependence; Z86.718 Personal history of other venous thrombosis and embolism; Z79.01 Long term (current) use of anticoagulants; Z23 Encounter for immunization; Y92.008 Other place in unspecified non-institutional (private) residence as the place of occurrence of the external cause
CPT/HCPCS: 71046; 90715

== ENCOUNTER 2024-04-28 21:35 | Emergency (ER) | payer OTHER ==
[2024-04-28 21:54] VITALS: TEMP 98.1
--- NOTE | 2024-04-28 22:16 | ED ---
Skin/Abscess/FB HPI - General Source: patient, RN notes reviewed Mode of arrival: ambulatory Limitations: no limitations - History of Present Illness MD complaint: rash Time: 19:00 Tetanus Up to Date: yes <Kamar Ya - Last Filed: 04/28/24 22:13> <Inga Farris - Last Filed: 04/29/24 21:47> - General Chief complaint: Skin/Abscess/Foreign Body Stated complaint: Rash on abd and back of legs Time Seen by Provider: 04/28/24 21:51 - History of Present Illness Initial comments: Quick note: This is a 63-year-old male presenting with rash across body since 1900 this evening. Patient states rash with associated itching and welting started after eating burritos/tacos today. States he has had these previous before without a reaction. States rash covering arms, legs and torso. Denies swelling of lips, tongue, throat or dyspnea/SOB. Endorses use of Benadryl with some relief. Endorses recent foreign body in right upper chest on Wednesday after a small piece of a hammer flew off and entered under skin. States it was advised to leave metal under skin for now due to the small size, receiving tetanus vaccination at that time. (Kamar Ya) Agree with above. In addition the patient reports that he did wear a new shirt today, however this is a short sleeve shirt and he is breaking out on his forearms and also onto his legs which the shirt did not touch. No nausea vomiting or abdominal pain. (Inga Farris) - Related Data Home Medications Medication Instructions Recorded Confirmed Celecoxib [CeleBREX] 200 mg PO DAILY 12/16/17 04/23/24 Cyclobenzaprine [Flexeril] 10 mg PO HS PRN 12/16/17 04/23/24 Gabapentin 600 mg PO DAILY PRN 12/16/17 04/23/24 Multivitamins, Thera [Multivitamin 1 tab PO DAILY 12/16/17 04/23/24 (formulary)] Calcium Carbonate [Calcium] 1,200 mg PO DAILY 01/26/19 04/23/24 Atorvastatin [Lipitor] 40 mg PO DAILY 05/19/23 04/23/24 Omeprazole 20 mg PO DAILY 05/19/23 04/23/24 Topiramate 100 mg PO HS 05/19/23 04/23/24 tadalafiL 5 mg PO DAILY 05/19/23 04/23/24 Aspirin EC [Ecotrin Low Dose] 81 mg PO DAILY 04/23/24 04/23/24 Cholecalciferol [Vitamin D3 (125 125 mcg PO DAILY 04/23/24 04/23/24 Mcg = 5000 Iu)] Loratadine 10 mg PO DAILY 04/23/24 04/23/24 Rivaroxaban [Xarelto] 20 mg PO DAILY 04/23/24 04/23/24 Previous Rx's Medication Instructions Recorded amLODIPine [Norvasc] 5 mg PO DAILY 30 Days #30 tab 04/14/23 methylPREDNISolone Dose Pack 4 mg PO DIRECTED #1 packet 04/28/24 [Medrol Dose Pack] Allergies Allergy/AdvReac Type Severity Reaction Status Date / Time MELANIE Inhibitors Allergy Swelling Verified 04/28/24 21:50 peanut Allergy Swelling Verified 04/28/24 21:50 Review of Systems ROS Other: All systems not noted in ROS Statement are negative. <Kamar Ya - Last Filed: 04/28/24 22:13> ROS Other: All systems not noted in ROS Statement are negative. <Inga Farris - Last Filed: 04/29/24 21:47> ROS Statement: Those systems with pertinent positive or pertinent negative responses have been documented in the HPI. Past Medical History Past Medical History: Deep Vein Thrombosis (DVT), Hyperlipidemia, Hypertension, Osteoarthritis (OA) Additional Past Medical History / Comment(s): hx colon polyps, varicose veins, occ acid reflux, two bulging disk and one herniated disk, History of Any Multi-Drug Resistant Organisms: None Reported Past Surgical History: Back Surgery, Orthopedic Surgery Additional Past Surgical History / Comment(s): arthroscopy lt knee, varicose veins removed rt leg, liposuction Past Anesthesia/Blood Transfusion Reactions: Motion Sickness Past Psychological History: No Psychological Hx Reported Smoking Status: Former smoker Past Alcohol Use History: None Reported, Occasional Past Drug Use History: None Reported - Past Family History Mother Family Medical History: Diabetes Mellitus Father Family Medical History: Cancer, Diabetes Mellitus, Respiratory Disorder Additional Family Medical History / Comment(s): prostate, emphysema <Kamar Ya - Last Filed: 04/28/24 22:13> General Exam Limitations: no limitations <Kamar Ya - Last Filed: 04/28/24 22:13> General appearance: alert, in no apparent distress Head exam: Present: atraumatic, normocephalic, normal inspection Eye exam: Present: normal appearance, EOMI ENT exam: Present: normal exam, normal oropharynx, mucous membranes moist Neck exam: Present: normal inspection. Absent: meningismus Respiratory exam: Present: normal lung sounds bilaterally. Absent: respiratory distress, wheezes, rales, rhonchi, stridor Cardiovascular Exam: Present: regular rate, normal rhythm, normal heart sounds. Absent: systolic murmur, diastolic murmur, rubs, gallop, clicks Neurological exam: Present: alert, oriented X3 Psychiatric exam: Present: normal affect, normal mood Skin exam: Present: urticaria <Inga Farris - Last Filed: 04/29/24 21:47> - General Exam Comments Initial Comments: Visual Physical Exam Vital signs reviewed General: Well-appearing, nontoxic, no acute distress. Head: Normocephalic, atraumatic Eyes: PERRLA, EOMI ENT: Airway patent Chest: Nonlabored breathing Skin: Diffuse maculopapular rash noted on upper and lower extremities and torso, normal skin tone Neuro: Alert and oriented 3 Musculoskeletal: No gross abnormalities (Kamar Ya) Course Vital Signs 04/28/24 04/28/24 21:50 23:48 Temperature 98.1 F Pulse Rate 60 72 Respiratory 18 16 Rate Blood Pressure 119/72 129/79 O2 Sat by Pulse 98 99 Oximetry Medical Decision Making <Kamar Ya - Last Filed: 04/28/24 22:13> <Inga Farris - Last Filed: 04/29/24 21:47> - Medical Decision Making I completed the quick note portion of this chart signed ZEYAD Godoy (Kamar Ya) Was pt. sent in by a medical professional or institution (MIKE Babin, QUALITY ANALYST, urgent care, hospital, or fdc...) When possible be specific @ -No Did you speak to anyone other than the patient for history (EMS, parent, family, police, friend...)? What history was obtained from this source @ -No Did you review nursing and triage notes (agree or disagree)? Why? @ -I reviewed and agree with nursing and triage notes Were old charts reviewed (outside hosp., previous admission, EMS record, old EKG, old radiological studies, urgent care reports/EKG's, fdc records)? Report findings @ -No old charts were reviewed Differential Diagnosis (chest pain, altered mental status, abdominal pain women, abdominal pain men, vaginal bleeding, weakness, fever, dyspnea, syncope, headache, dizziness, GI bleed, back pain, seizure, CVA, palpatations, mental health, musculoskeletal)? @ -Differential includes allergic reaction, cellulitis, eczema, this is not an all-inclusive list EKG interpreted by me (3pts min.). @ -As above X-rays interpreted by me (1pt min.). @ -None done CT interpreted by me (1pt min.). @ -None done U/S interpreted by me (1pt. min.). @ -None done What testing was considered but not performed or refused? (CT, X-rays, U/S, labs)? Why? @ -None What meds were considered but not given or refused? Why? @ -None Did you discuss the management of the patient with other professionals (professionals i.e. , PA, QUALITY ANALYST, lab, RT, psych nurse, social and political studies professor, origination specialist, teacher, facilities officer, spring encaser)? Give summary @ -No Was smoking cessation discussed for >3mins.? @ -No Was critical care preformed (if so, how long)? @ -No Were there social determinants of health that impacted care today? How? (Homelessness, low income, unemployed, alcoholism, drug addiction, transportation, low edu. Level, literacy, decrease access to med. care, [place] [facility], rehab)? @ -No Was there de-escalation of care discussed even if they declined (Discuss DNR or withdrawal of care, Hospice)? DNR status @ -No What co-morbidities impacted this encounter? (DM, HTN, Smoking, COPD, CAD, Cancer, CVA, ARF, Chemo, Hep., AIDS, mental health diagnosis, sleep apnea, morbid obesity)? @ -None Was patient admitted / discharged? Hospital course, mention meds given and route, prescriptions, significant lab abnormalities, going to OR and other pertinent info. @ -63-year-old male presenting with chief complaint of rash to the extremities and trunk that started this evening. He had some improvement with Benadryl. No difficulty breathing or swallowing. No signs of angioedema. Heart and lungs are clear to auscultation. No tripoding drooling or muffled voice. Patient does have urticaria to the extremities and trunk. He will be treated with Benadryl, Solu-Medrol, and Pepcid. He does have allergies to MELANIE inhibitors and peanuts which she states he has not come into contact with, he also states that he is wearing a new shirt but he is having the rash over areas that shirt has not touched. Provided a Medrol Dosepak. Discharged. Follow-up with PCP. Report back to ER with any new or worsening symptoms. Discussed return parameters and answered all questions. Patient conveyed verbal understanding and agreed to the plan. I discussed this case in detail with my attending Dr. Ramirez Undiagnosed new problem with uncertain prognosis? @ -No Drug Therapy requiring intensive monitoring for toxicity (Heparin, Nitro, Insulin, Cardizem)? @ -No Were any procedures done? @ -No Diagnosis/symptom? @ -Allergic reaction Acute, or Chronic, or Acute on Chronic? @ -Acute Uncomplicated (without systemic symptoms) or Complicated (systemic symptoms)? @ -Uncomplicated Side effects of treatment? @ -No Exacerbation, Progression, or Severe Exacerbation? @ -No Poses a threat to life or bodily function? How? (Chest pain, [place], [place], pneumonia, PE, COPD, DKA, ARF, appy, cholecystitis, CVA, Diverticulitis, Homicidal, Suicidal, threat to staff... and all critical care pts) @ -Low likelihood (Inga Farris) Disposition <Kamar Ya - Last Filed: 04/28/24 22:13> Is patient prescribed a controlled substance at d/c from ED?: No Time of Disposition: 23:37 <Inga Farris - Last Filed: 04/29/24 21:47> Clinical Impression: Allergic reaction Disposition: HOME SELF-CARE Condition: Good Instructions (If sedation given, give patient instructions): General Allergic Reaction (ED) Additional Instructions: Follow-up with PCP. Report back to ER with any new or worsening symptoms. Prescriptions: methylPREDNISolone Dose Pack [Medrol Dose Pack] 4 mg PO DIRECTED #1 packet Referrals: Robyn,Ninoska, DO [Primary Care Provider] - 1-2 days
[2024-04-28] MEDS: diphenhydrAMINE 50 MG/ML 1 ML VIAL IM STA (23:43)
[2024-04-28] MEDS: FAMOTIDINE 20 MG TAB PO STA (23:44)
[2024-04-28] MEDS: methylPREDNISolone SOD SUCCI 125 MG/2 ML VIAL IM ONE (23:44)
[2024-04-28 23:53] VITALS: BP 129/79; PULSE 72; RESP 16
== END 2024-04-28 23:48 | disposition home or self-care (01) ==
LOC: EC 21:35
DX: L50.0 Allergic urticaria (principal); Z87.891 Personal history of nicotine dependence; Z88.8 Allergy status to other drugs, medicaments and biological substances; Z91.010 Allergy to peanuts
CPT/HCPCS: 99283; 96372 ×2; J1200; J2919